=== PATIENT | female | born 1930 | race Caucasian/White ===

== ENCOUNTER 2020-07-27 20:49 | Inpatient (IN) ==
--- OUTSIDE RECORDS SUMMARY | 2020-07-27 20:52 | External Medical Summary | Continuity of Care Document ---
:1930 Author Name Silvia Wu Address Unavailable Unavailable , Care Team Providers Name Role Phone Jax Wu Unavailable [email or web address] Unavailable Unavailable Unavailable Unavailable Unavailable Problems Hearing loss (389.9) (H91.90) Impacted cerumen of both ears (380.4) (H61.23) Anorexia (783.0) (R63.0) Weight loss (783.21) (R63.4) History of malignant neoplasm of colon (V10.05) (Z85.038) Status: Resolved Spinal stenosis (724.00) (M48.00) Osteoarthritis (715.90) (M19.90) Dyslipidemia (272.4) (E78.5) Vitamin D deficiency (268.9) (E55.9) Osteopenia (733.90) (M85.80) History of Breast Cancer (V10.3) Status: Resolved Left inguinal hernia (550.90) (K40.90) Lower back pain (724.2) (M54.5) Impacted cerumen (380.4) (H61.20) Functional Status Hearing loss Allergies and Adverse Reactions Aspirin TABS (Allergy) Lexapro TABS (Allergy) Reaction: Constip ation Shellfish (Allergy) Medications Vitamin D 1000 UNIT TABS; TAKE 3 TABLET Daily Start: 28-May-2012 Refills: 0 Metamucil CAPS; TAKE 1 CAPSULE TWICE DAILY. Refills: 0 Procedures History of Complete Colonoscopy Status: Completed Immunizations Pneumococcal polysaccharide vaccine, 23 valent On: 5 Td On: 18-Feb-2008 Influenza On: 05-Apr-2011 Influenza On: 19-Mar-2012 11:42 Lot #: [id number], [employer]OFI PA[employer]UR Influenza On: 26-Mar-2013 Lot #: [id number], SANOFI PA[employer]UR Influenza On: 04-Apr-2014 14:17 Lot #: [id number], SANOFI PASTEUR Influenza On: 05-May-2015 14:57 Lot #: [id number], SANOFI PASTEUR Family History Father Family history of Father At Age ___ Status: Active Mother Family history of Mother At Age ___ Status: Active Unknown Family Member Family history of Heart Disease (V17.49) Status: Active Comments: Family History Social History - Smoking Status Never smoked tobacco Plan of Treatment Planned Observations Planned Goals not documented Results No Known Results Results not documented
[2020-07-27] MEDS ORDERED: SODIUM CHLORIDE 0.9% 1000ML 1,000 ML IV SCH (21:15)
[2020-07-27] MEDS ORDERED: ONDANSETRON INJ 2 MG/ML 2 ML VIAL IV STA ×2 (21:16→22:13)
--- NOTE | 2020-07-27 21:16 | Emergency Department Note ---
History of Present Illness General Chief complaint: Fall Stated complaint: FALL, L HIP PAIN Time Seen by Provider: 07/27/20 20:51 Source: patient Mode of arrival: EMS Limitations: physical limitation History of Present Illness Provider complaint: Fall This is an 89-year-old female who presents to the ED with a chief complaint of a fall. The son reportedly contacted or attempted to contact the patient and was unable to do so. He called a neighbor who checked on the patient. The patient was found on the floor in her apartment. She is believed to be there since yesterday. She told EMS that she wanted to just stay there and . She lives alone. The patient reported to the nurse that she took a bunch of oxycodone. The patient provides additional complaints at this time. Home Medications Medication Instructions Recorded Confirmed Type CHOLECALCIFEROL (VITAMIN D 1000 3,000 inter.unit PO DAILY #0 cap 08/23/12 History UNIT) Psyllium (Metamucil Powder) 1 pack PO BID #0 pack 08/23/12 History Allergies Allergy/AdvReac Type Severity Reaction Status Date / Time shellfish derived Allergy Severe HIVES Verified 08/23/12 11:30 Past Med/Surg History Social History Smoking Status: Never smoker Feels Safe at Home: No Review of Systems A total of 10 systems reviewed and were otherwise negative Physical Exam Vital Signs Vital Signs - 24 hr 07/27/20 21:10 07/27/20 21:30 07/27/20 22:11 Temperature 36.7 C Temperature Source Oral Pulse Rate 84 78 Pulse Rate [Apical] 76 Pulse Rate from SpO2 Sensor 78 Respiratory Rate 12 14 13 Respiratory Effort / Characteristics Non-Labored Spontaneous Non-Labored Spontaneous Respiratory Depth Normal Normal Blood Pressure 160/83 H 146/69 H Blood Pressure [Right Arm] 153/61 H Blood Pressure Mean 108 96 Blood Pressure Mean [Right Arm] 91 Blood Pressure Position Lying Blood Pressure Position [Right Arm] Lying Pulse Oximetry 98 100 100 Oxygen Delivery Method Room Air Nasal Cannula Oxygen Flow Rate 2 Sepsis Recent Fever Within 48 Hours No Sepsis New/Unexplained Change in Mental Status No Sepsis Action Taken by Nursing No Action Required CONSTITUTIONAL/VITAL SIGNS: Reviewed / noted above. GENERAL: Moderately ill in appearance. Cachectic. INTEGUMENTARY: Warm, dry, and [place]. There are multiple areas of skin redness and irritation on the bony prominences from the patient laying on the floor. HEAD: Normocephalic. EYES: without scleral icterus or trauma. ENT/OROPHARYNX: clear and dry. LYMPHADENOPATHY/NECK: Is supple without lymphadenopathy or meningismus. RESPIRATORY: Lungs clear and equal. CARDIOVASCULAR: Tachycardic rate and regular rhythm. GI/ABDOMEN: Soft and nontender. No organomegaly or pulsatile mass. No rebound or guarding. Normal bowel sounds. EXTREMITIES: Warm and well perfused. There is shortening of the left leg with some discomfort in the left hip. NEUROLOGICAL: The patient is hard of hearing. She does answer questions adequately. PSYCHIATRIC: She told EMS that she wanted to stay there and . MUSCULOSKELETAL: Generally weak in appearance. TRIAGE NURSING DOCUMENTATION REVIEWED. Course Administered Medications Sodium Chloride (Nss 1000ml) 1,000 mls @ 125 mls/hr IV .Q8H [facility] Stop: 07/28/20 05:14 Last Infusion: 07/27/20 22:05 Dose: 250 mls/hr Documented by: [id number] Infusion: 07/27/20 22:05 Dose: 0 mls/hr Documented by: [id number] Admin: 07/27/20 21:20 Dose: 125 mls/hr Documented by: [id number] Sodium Chloride (Nss 1000ml) 1,000 mls @ 250 mls/hr IV .Q4H [facility] Stop: 07/28/20 01:44 Last Admin: 07/27/20 22:09 Dose: Not Given Documented by: [id number] Discontinued Medications Ondansetron HCl (Ondansetron Inj 2 Mg/Ml 2 Ml Vial) 4 mg IV NOW [facility] Stop: 07/27/20 21:17 Last Admin: 07/27/20 21:20 Dose: 4 mg Documented by: [id number] Medical Decision Making Differential Diagnosis Differential includes acute coronary syndrome, myocardial infarction, CVA, TIA, anemia, infection, pneumonia, UTI, pyelonephritis, poor nutrition, dehydration, electrolyte disturbance,hypoglycemia. Medical Records Attestation: I reviewed the patient's medical records. Home Medications Current Medication List: was personally reviewed by me Laboratory Data Attestation: I reviewed the patient's lab results. Result diagrams: 07/27/20 21:09 07/27/20 21:09 Lab Results 07/27/20 07/27/20 07/27/20 Range/Units 21:09 21:09 21:09 WBC 10.95 H (4.8-10.8) K/uL RBC 4.13 L (4.2-5.4) M/uL Hgb 12.7 (12.0-16.0) g/dL Hct 37.6 (37-47) % MCV 91.0 (80-100) fL MCH 30.8 (25-34) pg MCHC 33.8 (32-36) g/dL RDW Std Deviation 43.4 (36.4-46.3) fL RDW Coeff of Jordan 13.0 (11.5-14.5) % Plt Count 156 (130-400) K/uL MPV 10.3 (7.4-10.4) fL Immature Gran % (Auto) 0.2 % Neut % (Auto) 89.8 % Lymph % (Auto) 5.1 % Calloway % (Auto) 4.8 % Eos % (Auto) 0.0 % Baso % (Auto) 0.1 % Neut # (Auto) 9.83 H (1.4-6.5) K/uL Lymph # (Auto) 0.56 L (1.2-3.4) K/uL Calloway # (Auto) 0.53 (0.11-0.59) K/uL Eos # (Auto) 0.00 (0-0.5) K/uL Baso # (Auto) 0.01 (0-0.2) K/uL Immature Gran # (Auto) 0.02 (0.00-0.02) K/uL Sodium 142 (136-145) mmol/L Potassium 3.8 (3.5-5.1) mmol/L Chloride 105 (98-107) mmol/L Carbon Dioxide 28 (21-32) mmol/L Anion Gap 9.0 (3-11) BUN 27 H (7-18) mg/dl Creatinine 0.97 (0.6-1.2) mg/dl Est Cr Clr Drug Dosing Not Reportable Est GFR ( Amer) 60.0 Est GFR (Non-Af Amer) 51.8 BUN/Creatinine Ratio 28.1 H (10-20) Glucose 116 H (70-99) mg/dl Calcium 9.0 (8.5-10.1) mg/dl Magnesium 1.6 L (1.8-2.4) mg/dl Total Bilirubin 3.0 H (0.2-1) mg/dl AST 35 (15-37) U/L ALT 23 (12-78) U/L Alkaline Phosphatase 50 (45-117) U/L Total Creatine Kinase 557 H (26-192) U/L Total Protein 6.1 L (6.4-8.2) gm/dl Albumin 2.8 L (3.4-5.0) gm/dl Globulin 3.3 (2.5-4.0) gm/dl Albumin/Globulin Ratio 0.9 (0.9-2) Acetaminophen (10-30) ug/ml COVID-19 Eval Order 07/27/20 Range/Units 21:50 WBC (4.8-10.8) K/uL RBC (4.2-5.4) M/uL Hgb (12.0-16.0) g/dL Hct (37-47) % MCV (80-100) fL MCH (25-34) pg MCHC (32-36) g/dL RDW Std Deviation (36.4-46.3) fL RDW Coeff of Jordan (11.5-14.5) % Plt Count (130-400) K/uL MPV (7.4-10.4) fL Immature Gran % (Auto) % Neut % (Auto) % Lymph % (Auto) % Calloway % (Auto) % Eos % (Auto) % Baso % (Auto) % Neut # (Auto) (1.4-6.5) K/uL Lymph # (Auto) (1.2-3.4) K/uL Calloway # (Auto) (0.11-0.59) K/uL Eos # (Auto) (0-0.5) K/uL Baso # (Auto) (0-0.2) K/uL Immature Gran # (Auto) (0.00-0.02) K/uL Sodium (136-145) mmol/L Potassium (3.5-5.1) mmol/L Chloride (98-107) mmol/L Carbon Dioxide (21-32) mmol/L Anion Gap (3-11) BUN (7-18) mg/dl Creatinine (0.6-1.2) mg/dl Est Cr Clr Drug Dosing Est GFR ( Amer) Est GFR (Non-Af Amer) BUN/Creatinine Ratio (10-20) Glucose (70-99) mg/dl Calcium (8.5-10.1) mg/dl Magnesium (1.8-2.4) mg/dl Total Bilirubin (0.2-1) mg/dl AST (15-37) U/L ALT (12-78) U/L Alkaline Phosphatase (45-117) U/L Total Creatine Kinase (26-192) U/L Total Protein (6.4-8.2) gm/dl Albumin (3.4-5.0) gm/dl Globulin (2.5-4.0) gm/dl Albumin/Globulin Ratio (0.9-2) Acetaminophen (10-30) ug/ml COVID-19 Eval Order Covid19 [facility] Imaging Data Attestation: I personally reviewed and interpreted this imaging study as follows: My Impression: X-ray of the pelvis and left hip shows a left hip fracture. X-ray of the chest: Per my interpretation there is no acute disease. CT scan of the brain: No intracranial bleed. ECG Data Attestation: I personally reviewed and interpreted this ECG as follows: Indication: + weakness Rate (beats per minute): 111 Rhythm: + sinus tachycardia ECG ST segments: no ST elevation ECG Findings: no PVCs MDM Narrative The patient presents to the ED after she was on the floor for at least a day. She had fallen. Details listed above. The patient has a left hip fracture on exam and on x-ray. Her blood work looks relatively unremarkable. She has a mild CK elevation. Chest x-ray has some artifactual changes but I do not suspect pneumothorax or pneumonia. CT scan of the brain did not show acute intracranial bleed. The patient was hydrated with some IV fluids. She was given IV Zofran for some nausea and IV fentanyl for pain. She was seen by the hospitalist for further evaluation and care. Impression & Plan Closed fracture of left hip, Weakness, Fall Discharge Plan Visit Data Chief Complaint: Fall Stated Complaint: FALL, L HIP PAIN ED Provider: Alessandro Enriquez Discharge Problem: Closed fracture of left hip, Weakness, Fall Patient Disposition: Being Evaluated by Hospitalist Forms Stand Alone Forms: My [facility] Prescriptions Prescriptions: No Action CHOLECALCIFEROL (VITAMIN D 1000 UNIT) 1,000 UNIT capsule 3,000 inter.unit PO DAILY Qty: 0 RF: 0 Psyllium (Metamucil Powder) powder 1 pack PO BID Qty: 0 RF: 0 Referrals Referrals: Louis Camara MD [Primary Care Provider] -
[2020-07-27 21:23] LABS: Basophils # (auto) 0.01 K/uL (0-0.2); Basophils % (auto) 0.1 %; Hematocrit (blood only) 37.6 % (37-47); Hemoglobin 12.7 g/dL (12.0-16.0); Immature Granulocytes # (auto) 0.02 K/uL (0.00-0.02); Immature Granulocytes % (auto) 0.2 %; Lymphocytes # (auto) 0.56 K/uL (1.2-3.4); Lymphocytes % (auto) 5.1 %; Mean Corpuscular Hemoglobin 30.8 pg (25-34); Mean Corpuscular Hgb Conc 33.8 g/dL (32-36); Mean Platelet Volume 10.3 fL (7.4-10.4); Monocytes # (auto) 0.53 K/uL (0.11-0.59); Monocytes % (auto) 4.8 %; Neutrophils # (auto) 9.83 K/uL (1.4-6.5); Neutrophils % (auto) 89.8 %; Platelet Count 156 K/uL (130-400); RDW Standard Deviation 43.4 fL (36.4-46.3); Red Blood Count 4.13 M/uL (4.2-5.4); White Blood Count 10.95 K/uL (4.8-10.8)
[2020-07-27 21:40] LABS: Alanine Aminotransferase 23 U/L (12-78); Albumin Level 2.8 gm/dl (3.4-5.0); Aspartate Aminotransferase 35 U/L (15-37); BUN Creatinine Ratio 28.1 (10-20); Blood Urea Nitrogen 27 mg/dl (7-18); Carbon Dioxide 28 mmol/L (21-32); Chloride 105 mmol/L (98-107); Est GFR (Non-African American) 51.8; Glucose 116 mg/dl (70-99); Magnesium 1.6 mg/dl (1.8-2.4); Potassium 3.8 mmol/L (3.5-5.1); Sodium 142 mmol/L (136-145)
[2020-07-27 21:43] LABS: Albumin Globulin Ratio 0.9 (0.9-2); Alkaline Phosphatase 50 U/L (45-117); Creatine Kinase 557 U/L (26-192); Globulin 3.3 gm/dl (2.5-4.0); Total Protein 6.1 gm/dl (6.4-8.2)
[2020-07-27] MEDS: SODIUM CHLORIDE 0.9% 1000ML 1,000 ML IV SCH ×2 (22:06→22:09)
[2020-07-27] MEDS: fentaNYL citrate 100 MCG/2 ML VIAL IV PRN ×2 (22:18→23:28)
[2020-07-27 22:24] LABS: Appearance Urine Clear (Clear); Bacteria Urine Automated Negative (Negative); Bilirubin Urine Negative (Negative); Blood Urine Negative (Negative); Cast Urine Automated 0 /lpf (0-5); Color Urine Yellow; Epithelial Cell Urine Auto 0-5 /lpf (0-5); Glucose Urine UA Negative (Negative); Ketones Urine 1+ (Negative); Leukocyte Esterase Urine Negative (Negative); Nitrite Urine Negative (Negative); Protein Urine Trace (Negative); RBC Urine Automated 0-4 /hpf (0-4); Urobilinogen Urine Negative (Negative); WBC Urine Automated 0 /hpf (0-5)
[2020-07-27 22:28] LABS: INR 1.1 (0.9-1.1); Partial Thromboplastin Ratio 1.1; Partial Thromboplastin Time 29.6 Seconds (21.0-31.0); Prothrombin Time 11.1 Seconds (9.0-12.0)
--- NOTE | 2020-07-27 22:55 | History & Physical Report ---
Date of Service July 27, 2020 Assessment & Plan (1) Fall: 89-year-old female with PMH of colorectal cancer s/p resection in 2009, and breast cancer who presented to the ED due to a fall at home. Cause of the fall is unclear but likely mechanical. Has remained hemodynamically stable and head imaging negative. ECG pending. Requires admission due to left hip fracture, evaluation and possible surgical intervention. Fall - Admit to medical floor - Head CT negative for acute process--official read pending - Left hip fracture on XR - Consult orthopedics - ECG pending Rhabdomyolysis - Elevated CK liekly 2/ being immobile on floor for many hours - IVF w/ NSS @ 80cc/hr - Trend CK level - AM BMP Hypomagnesemia - Low magnesium 1.6 - 2g Mag Sulfate given - Check Mag level in AM Abnormal CXR - Unclear abnormal findings on CXR--official read pending - Patient desatting on room air to 88% requiring 2L NC - Ordered CTA chest--follow results Passive SI - Patient expressed wanting to to EMS - Consult psych FENGI: NPO, NSS @80cc/hr DVT ppx: LOvenox 30mg SQ Dispo: Admit to medical floor Code Status: Full, per discussion with son (NORMA), he will bring in patient's advanced directive (2) Closed fracture of left hip: (3) Weakness: (4) Hypomagnesemia: (5) Rhabdomyolysis: (6) Passive suicidal ideations: (7) Abnormal chest x-ray: History of Present Illness Chief Complaint: Fall Primary Care Provider: Louis Camara MD Magalie Noel is an 89-year-old female with PMH of colorectal cancer s/p resection in 2009, and breast cancer who presented to the ED due to a fall at home. The patient lives alone and was not answering calls today from her son who lives in [place]. As such, he reached out to a neighbor of hers who went to her home and found her laying on the floor of her home. It is unclear how long the patient was on the floor but the son mentions that he talked to her yesterday (07/26) at 4:30PM and she was doing well at that time. The patient is an unreliable historian as she is very hard of hearing and is lethargic/confused. She does have hearing aids here with her but does not use them often and they are out of battery. However, she is able to hear and respond to some things. She mentions that she fell yesterday and hurt her hip, at which point she took an undetermined number of her 's oxycodone. She says that she took these because of pain related to her fall, not before falling. When EMS arrived at the home to assist, she reportedly mentioned that she just wanted to stay there and . Per phone discussion with patient's son, Mendez, he mentions that she has never expressed suicidal ideation and would be very opposed to suicide. Discussed patient's code status with son who is POA due to her current AMS. He mentions that she has advanced directive at home, which he or his brother will bring in when they travel to [place] tomorrow. Mentioned that she had mentioned not wanting "heroic measures" taken if her likelihood of survival/ improvement were low. Nonetheless he preferred to make her full code for now and will change according to her AD. Allergies Allergy/AdvReac Type Severity Reaction Status Date / Time shellfish derived Allergy Severe HIVES Verified 07/27/20 23:04 Home Medications Medication Instructions Recorded Confirmed Type cholecalciferol (vitamin D3) 25 mcg PO DAILY 07/27/20 07/27/20 History [Vitamin D3] Past Med/Surg History Social History Smoking Status: Never smoker Preferred Language: Somali Communication Ability: Effective Ben Day Artist Required: No Beliefs That Will Affect Care: None Current Living Situation: Alone Feels Safe at Home: No Assistive Devices: Walker Assistive Devices Comment: unsure of ambulatory devices at home Review of Systems Review of Systems: Unobtainable due to difficulty communicating but denies symptoms in general apart from pain. Physical Exam Constitutional: + thin, + frail appearing, + lethargic and + underweight; no acute distress Eyes: PERRL, conjunctivae normal, anicteric sclerae ENMT: external ear and nose normal, oropharynx normal Neck: trachea midline, no thyromegaly Respiratory: normal respiratory effort, lungs clear to auscultation no labored breathing Auscultation: no crackles, no rales, no rhonchi and no wheezes Cardiovascular: RRR, no murmur, no edema Heart Sounds: normal S1 and normal S2 Gastrointestinal (Abdomen): normal bowel sounds, soft, nontender, no hepatosplenomegaly Musculoskeletal: Contored in bed, refusing to move extremities Skin: no rashes, warm and dry Psychiatric: Expressed wanting to to EMS Results & Data Results & Data ([facility]) Vital Signs (Past 12 Hours) Vital Signs Temp Pulse Pulse Resp BP BP Pulse Ox 07/27/20 22:20 88 L 07/27/20 22:11 78 13 146/69 H 100 07/27/20 21:30 76 14 153/61 H 100 07/27/20 21:10 36.7 C 84 12 160/83 H 98 Supervising Physician Co-Signing Physician Notes Attending addendum: I have physically seen this patient, have supervised the medical residents activities, and agree with the H&P unless as otherwise noted. Assessment and Plan: Closed left hip fracture status post fall- N.p.o. after midnight Pain control Consult orthopedic surgery Rhabdomyolysis- CK 557 on admission Follow CK serially. Rehydration with IV fluids, NSS at 80 mils per hour Abnormal chest x-ray- Suggestion of left upper lobe mass Order CTA of chest to further assess Remaining orders and notations as noted Resident Activity Tracking Resident Involvement: Resident Care Provided Care Provided: Adult Hospital Medicine (1) Closed fracture of left hip Encounter type: initial encounter Qualified Code(s): S72.002A - Fracture of unspecified part of neck of left femur, initial encounter for closed fracture
[2020-07-28] MEDS: fentaNYL citrate 100 MCG/2 ML VIAL IV PRN (01:09)
[2020-07-28] MEDS ORDERED: OPTIRAY 320 125ml IV ONE (01:40)
[2020-07-28] MEDS: SODIUM CHLORIDE 0.9% 1000ML 1,000 ML IV SCH ×2 (01:44→15:07)
[2020-07-28] MEDS: MAGNESIUM SULFATE / D5W 1 GM/100 ML BAG IV SCH ×2 (01:44→03:45)
[2020-07-28] MEDS ORDERED: ALUMINUM/MAGNESIUM SUSP 30 ML UDC PO PRN (01:44)
[2020-07-28] MEDS ORDERED: PNEUMOCOCCAL ADMINISTRATION CHARGE ONE (02:06)
[2020-07-28] MEDS ORDERED: INFLUENZA ADMINISTRATION CHARGE ONE (02:06)
[2020-07-28] MEDS ORDERED: INFLUENZA VACCINE HIGH DOSE 65+ 0.7 ML SYR IM ONE (02:06)
[2020-07-28] MEDS ORDERED: PNEUMOCOCCAL POLYSACCHARIDES 25 MCG/0.5 ML VIAL/SYR IM ONE (02:06)
--- NOTE | 2020-07-28 06:33 | CT Scan Report ---
CT head/brain wo con CLINICAL HISTORY: 89 years-old Female with fall. Acute head injury status post fall TECHNIQUE: Multiple axial CT images of the head were obtained without contrast. A dose lowering tech nique was utilized adhering to the principles of ALARA. CT DOSE: 614.27 mGy.cm COMPARISON: None. FINDINGS: No acute intracranial hemorrhage, midline shift, intracranial mass, hydrocephalus, territorial ischem ia or abnormal extra-axial collection. Age-related involutional changes. White matter hypodensities s uggestive of chronic microvascular ischemic disease. The calvarium is intact. The paranasal sinuses, mastoid air cells, and middle ear cavities are clear . IMPRESSION: No acute intracranial abnormality or calvarial fracture. ACT 112: Negative or not required by law. The above report was generated using voice recognition software. It may contain grammatical, syntax o r spelling errors. Electronically signed by: Keith Milan M.D. 07/28/2020 6:32 AM
[2020-07-28 07:22] LABS: BUN Creatinine Ratio 32.7 (10-20); Calcium 8.5 mg/dl (8.5-10.1); Creatinine Clr Calc Pharmacy 35.7 ml/min; Est GFR (African American) 74.6; Est GFR (Non-African American) 64.4; Magnesium 2.3 mg/dl (1.8-2.4); Potassium 3.9 mmol/L (3.5-5.1)
[2020-07-28] MEDS ORDERED: MoRPHine SULFATE 4 MG/ML 1 ML CARP\\VIAL IV PRN (07:29)
[2020-07-28] MEDS: ONDANSETRON INJ 2 MG/ML 2 ML VIAL IV PRN ×2 (07:40→15:33)
--- NOTE | 2020-07-28 07:42 | XRay Report ---
XR hip LT 2V w pelvis CLINICAL HISTORY: fall. Left hip pain. COMPARISON STUDY: None. FINDINGS: There is a displaced left femoral neck fracture. This demonstrates up to 1.5 cm of superior displacement. No dislocation. The bones are osteopenic. The visualized pelvic bones and right hip ap pear intact. IMPRESSION: Displaced left femoral neck fracture. ACT 112: Negative or not required by law. Electronically signed by: Rufino Barron M.D. 07/28/2020 7:41 AM
--- NOTE | 2020-07-28 07:49 | XRay Report ---
XR chest 1V portable HISTORY: Fall. Left hip pain. weakness COMPARISON: Chest 05/08/2006. FINDINGS: There is a 5.5 x 3.2 cm left perihilar lobular mass. Patchy airspace opacity within the rig ht lower lung zone. The heart is normal in size. No pleural effusions. No pneumothorax. The bones are osteopenic. IMPRESSION: 1. A 5.5 x 3.2 cm left perihilar lobular mass. This is concerning for a primary bronchogenic malignan cy. Follow-up chest CT is recommended. 2. Patchy airspace opacities within the right lower lung zone. This may represent a pneumonia. ACT 112: Negative or not required by law. Electronically signed by: Rufino Barron M.D. 07/28/2020 7:47 AM
--- NOTE | 2020-07-28 08:26 | CT Scan Report ---
CHEST CTA for PULMONARY ARTERIES CT DOSE: 261.20 mGy.cm HISTORY: Abnormal chest x-ray. Nonspecific findings in lungs on CXR TECHNIQUE: Multiaxial CT images of the chest were performed following the intravenous administration of contrast to evaluate the pulmonary arteries. Maximal intensity projection images were also obtaine d. A dose lowering technique was utilized adhering to the principles of ALARA. COMPARISON STUDY: Chest 07/27/2020. FINDINGS: There is a 1.7 cm saccular aneurysm within the infrarenal abdominal aorta. The visualized l iver and spleen are unremarkable. Thickening of the adrenal glands is likely age-related. No evidence for an aortic dissection. The heart is normal in size. No pleural or pericardial effusions. Borderli ne aneurysmal dilatation of the ascending thoracic aorta measuring up to 3.9 cm in diameter. Tiny josh ear filling defect seen within a single left upper lobe segmental pulmonary artery best seen on image 213. Just beyond this filling defect there is severe narrowing of the left upper lobe segmental/subs egmental pulmonary arteries at this location secondary to the lobular mass at this location. No addit ional filling defects within the remaining pulmonary arteries. Therefore, this small filling defect f avors chronic thrombus versus scarring or tumor invasion. There is a 4.1 x 3.7 cm lobular left perihi lar low density lesion. This concerning for a pulmonary mass. There is an enlarged and partially calc ified left hilar lymph node measuring 1.7 cm. A 7 mm left thyroid nodule. No additional enlarged medi astinal or right hilar lymph nodes. This partially calcified left hilar lymph node appears to demonst rate a small endobronchial component. Multiple small patchy airspace opacities within the right mid t o lower lung zone most pronounced within the right lower lobe. This is consistent with a pneumonia an d could be due to viral process or aspiration. No pneumothorax. No suspicious lytic or blastic osseou s lesions. IMPRESSION: 1. Tiny linear filling defect seen within a single left upper lobe segmental pulmonary artery. Just b eyond this filling defect there is severe narrowing of the left upper lobe segmental/subsegmental pul monary arteries at this location secondary to the lobular masslike density at this location. No addit ional filling defects within the remaining pulmonary arteries. Therefore, this small filling defect f avors chronic thrombus versus scarring or tumor invasion. 2. There is a 4.1 x 3.7 cm lobular left perihilar low density lesion. This concerning for a pulmonary mass. An obstructed and fluid-filled bronchus could also have a similar appearance. There is an enla rged and partially calcified left hilar lymph node measuring 1.7 cm which appears to demonstrate a sm all endobronchial component. Bronchoscopy recommended for further evaluation and to exclude a pulmona ry mass. 3. A 1.7 cm saccular aneurysm within the infrarenal abdominal aorta. 4. Multiple small patchy airspace opacities within the right mid to lower lung zone. This is consiste nt with a pneumonia could be due to a viral process or aspiration. ACT 112: Positive. There are findings on this exam that require communication between the performing entity and the patient following Patient Test Result Information Act ([place] Act 112) guidelines. Electronically signed by: Rufino Barron M.D. 07/28/2020 8:25 AM
[2020-07-28] MEDS ORDERED: ENOXAPARIN INJ 30 MG/0.3 ML SYR SQ SCH (09:00)
--- NOTE | 2020-07-28 09:32 | Surgery Consultation ---
Date of Consultation July 28, 2020 Assessment & Plan (1) Closed fracture of left hip: I discussed treatment options with the patient. I also discussed this with her son in [place] by the name of our knee. Certainly this is simply typically fixed surgically with a hemiarthroplasty. The risks and benefit of this procedure explained to the patient as well as her son and informed consent was obtained. The risks and benefits include but not limited to DVT, PE, , infection, fracture, dislocation, need for blood transfusion, need for further surgery. Patient understands and desires to proceed. Informed consent was obtained. The patient's been admitted by the hospitalist service. She is being medically optimized. We will likely proceed with surgery later on the this morning or early afternoon. Present on Admission?: Yes History of Present Illness Reason for Consultation: Left hip fracture Attending Physician: Dereje Diop History of Present Illness Patient is an 89-year-old female who lives by herself in a two-story building who reports a fall yesterday. Patient is a very poor historian with very hard of hearing with a nonfunctioning hearing aids. She apparently sustained a fall. She had acute onset of pain and could not walk afterwards. She denies any pre-existing hip pain. Denies any other significant injuries. She was a previous ambulator. She states she ambulates without a walker normally. Allergies Allergy/AdvReac Type Severity Reaction Status Date / Time shellfish derived Allergy Severe HIVES Verified 07/27/20 23:04 Home Medications Medication Instructions Recorded Confirmed Type cholecalciferol (vitamin D3) 25 mcg PO DAILY 07/27/20 07/27/20 History [Vitamin D3] Patient History Social History Smoking Status: Never smoker Preferred Language: Uzbek Communication Ability: Effective Special Events Fundraiser Required: No Beliefs That Will Affect Care: None Current Living Situation: Alone Feels Safe at Home: No Assistive Devices: Glasses and Hearing Aid - Right Assistive Devices Comment: unsure of ambulatory devices at home Review of Systems Review of Systems: All systems reviewed & are unremarkable except as noted in HPI & below Physical Exam Physical Exam: Musculoskeletal exam reveals an elderly cachectic female who is lying in bed. She looks in no acute distress. General musculoskeletal exam reveals painless range of motion of her cervical thoracic and lumbar spine to palpation. She has had painless range of motion of both upper extremities. She does have some scattered bruising. And diffuse atrophy she is quite cachectic. Examination of her lower extremities reveals her left leg to be shortened and slightly externally rotated. No pain with palpation. No knee effusion. She has marked pain with any attempted hip range of motion. She can dorsiflex and plantarflex her foot appropriately. She is neurologically intact. Examination of the right lower extremity reveals no obvious deformity. She does have some bruising over the anterior aspect of her knee around her kneecap. No knee effusion. No particular pain with hip or knee motion. Results & Data ([facility]) Vital Signs (Past 12 Hours) Vital Signs Temp Pulse Pulse Resp BP BP Pulse Ox 07/28/20 07:20 36.8 C 85 16 108/57 L 97 07/28/20 01:52 36.4 C L 87 18 151/77 H 94 07/28/20 01:30 07/28/20 01:00 76 22 144/73 H 97 07/28/20 00:30 69 16 150/67 H 100 07/28/20 00:00 64 17 128/64 100 07/27/20 23:30 69 18 141/56 H 100 07/27/20 23:01 73 13 99 07/27/20 23:00 76 20 144/77 H 100 07/27/20 22:30 81 16 127/56 L 99 07/27/20 22:20 88 L 07/27/20 22:11 78 13 146/69 H 100 07/27/20 21:30 76 14 153/61 H 100 Pulse Ox 07/28/20 07:20 07/28/20 01:52 07/28/20 01:30 94 07/28/20 01:00 07/28/20 00:30 07/28/20 00:00 07/27/20 23:30 07/27/20 23:01 07/27/20 23:00 07/27/20 22:30 07/27/20 22:20 07/27/20 22:11 07/27/20 21:30 PG Care Time/CCT Total # of Minutes Spent Total Time Spent with Patient: Total time spent is greater than 50% in coor dination of care (as documented) at patient's floor/unit and/or counseling patient: Coding Level of Care Code 53950 Office/OBS Consult Lvl 5 Diagnoses Closed fracture of left hip S72.002A Encounter type: initial encounter (1) Closed fracture of left hip Encounter type: initial encounter Qualified Code(s): S72.002A - Fracture of unspecified part of neck of left femur, initial encounter for closed fracture
[2020-07-28] MEDS ORDERED: BUPIVACAINE/EPINEPHRINE 0.5% MPF 1:200,000 30 ML VIAL ONE (09:47)
[2020-07-28] MEDS ORDERED: BACITRACIN INJ 50,000 UNIT VIAL ONE (09:48)
--- NOTE | 2020-07-28 09:54 | History & Physical Bridge Note ---
Date of Service July 28, 2020 History & Physical Bridge Note I have examined the patient, reviewed the History & Physical and in the interval since the performance of the History & Physical I have noted the following changes of clinical significance: no changes noted
[2020-07-28] MEDS ORDERED: BUPIVACAINE 0.5 % 5 MG/1 ML PF 10ML VIAL ONE (10:35)
[2020-07-28] MEDS ORDERED: fentaNYL citrate 100 MCG/2 ML VIAL ONE (10:45)
[2020-07-28] MEDS ORDERED: LIDOCAINE HCL 2% 2 ML VIAL/AMP(20MG/ML) INFIL ONE (10:45)
[2020-07-28] MEDS ORDERED: PROPOFOL IV EMULSION 10 MG/ML 20 ML VIAL IV ONE (10:45)
--- NOTE | 2020-07-28 11:09 | Anesthesiology Consultation ---
Date of Service July 28, 2020 Assessment & Plan Chart Review Chart Review: Acceptable Risk for Surgery Consults Requested none History Surgery Operation Date: 07/28/20 10:50 Proposed Procedures p Left Bipolar Hemiarthroplasty - Srinath Starks MD Height/Weight Height: 5 ft 7 in Weight: 48 kg Allergies Allergy/AdvReac Type Severity Reaction Status Date / Time shellfish derived Allergy Severe HIVES Verified 07/27/20 23:04 Medications Home Medications Medication Instructions Recorded Confirmed Last Taken cholecalciferol (vitamin D3) 25 mcg PO DAILY 07/27/20 07/27/20 Unknown [Vitamin D3] Active Medications Generic Name Dose Route Start Last Admin Trade Name Freq PRN Reason Stop Dose Admin Sodium Chloride 1,000 mls @ 80 mls/hr 07/28/20 01:44 07/28/20 06:02 Nss 1000ml IV 08/27/20 01:43 80 mls/hr .[id number] KUSHAL Infusion Morphine Sulfate 4 mg 07/28/20 07:29 07/28/20 07:40 Morphine Sulfate 4 Mg/Ml 1 Ml Carp\Vial IV 08/11/20 07:28 4 mg Q4H PRN Administration Severe Pain (rating 7-10) Ondansetron HCl 4 mg 07/28/20 01:44 07/28/20 07:40 Ondansetron Inj 2 Mg/Ml 2 Ml Vial IV 08/27/20 01:43 4 mg Q6H PRN Administration Nausea NPO Date Last Intake of Fluids: 07/28/20 Time Last Intake of Fluids: 01:30 Date Last Intake of Solids: 07/28/20 Time Last Intake of Solids: 01:30 Social History Smoking Status: Never smoker Physical Exam Vital Signs Last Vital Signs Temp 36.9 C 07/28/20 10:53 Pulse 87 07/28/20 10:53 Resp 18 07/28/20 10:53 BP 108/63 07/28/20 10:53 Pulse Ox 95 07/28/20 10:53 Testing Laboratory Results 07/27/20 21:09 07/28/20 06:19 PT 11.1 Seconds (9.0-12.0) 07/27/20 21:09 INR 1.1 (0.9-1.1) 07/27/20 21:09 APTT 29.6 Seconds (21.0-31.0) 07/27/20 21:09 Urine Color Yellow 07/27/20 22:11 Urine Appearance Clear (Clear) 07/27/20 22:11 Urine pH 5.0 (4.5-7.5) 07/27/20 22:11 Ur Specific [place] 1.020 (1.000-1.030) 07/27/20 22:11 Urine Protein Trace (Negative) H 07/27/20 22:11 Urine Glucose (UA) Negative (Negative) 07/27/20 22:11 Urine Ketones 1+ (Negative) H 07/27/20 22:11 Urine Nitrite Negative (Negative) 07/27/20 22:11 Ur Leukocyte Esterase Negative (Negative) 07/27/20 22:11 Urine WBC (Auto) 0 /hpf (0-5) 07/27/20 22:11 Urine RBC (Auto) 0-4 /hpf (0-4) 07/27/20 22:11 U Hyaline Cast (Auto) 0 /lpf (0-5) 07/27/20 22:11 U Epithel Cells (Auto) 0-5 /lpf (0-5) 07/27/20 22:11 Urine Bacteria (Auto) Negative (Negative) 07/27/20 22:11 Blood Type A Positive 07/27/20 22:41 Antibody Screen NEGATIVE 07/27/20 22:41
[2020-07-28] MEDS ORDERED: HYDROmorphone INJ 1 MG/ML SYRINGE IV PRN (11:10)
[2020-07-28] MEDS ORDERED: ePHEDrine sulfate 50 MG/ML AMP IV PRN (11:10)
[2020-07-28] MEDS ORDERED: fentaNYL citrate 100 MCG/2 ML VIAL IV PRN (11:10)
[2020-07-28] MEDS ORDERED: ATROPINE SULFATE 0.1 MG/ML 10ML SYR IV PRN (11:10)
[2020-07-28] MEDS ORDERED: KETAMINE 50 MG/5 ML SYRINGE ONE (11:13)
--- NOTE | 2020-07-28 12:39 | Communication Note ---
Date of Service: July 28, 2020 Psychiatric consultation requested by our hospitalist team to evaluate patient after she had reportedly made statements to EMS suggestive of passive wishes. Pt was admitted medically on 07/27/2020 due to a fall she sustained at home - findings suggest closed fracture of the patient's left hip. H&P suggests the patient took an unknown number of her 's oxycodone for the pain related to her fall. Pt does have a PMH of colorectal cancer and breast cancer. Surgical consultation was placed. Attempt was made today by our psychiatric nurse liaison to complete initial evaluation of the patient. Unfortunately, the patient is reported to be very hard of hearing and productivity of interview was limited. Liaison did reach out to [employer] for assistance with obtaining hearing aid batteries, but likely not able to complete request today. Pt is also noted to be headed to the OR today due to left hip fracture, and likely will not be in a state to complete a psychiatric consultation later today. We will plan to follow-up with patient tomorrow. In the interim, our liaison has been able to discuss our role with the patient's son. Son denies known history of mental health treatment for the patient. He feels the statements were likely in the context of patient dealing with several significant cancer diagnoses and the fear of another prolonged medical stay. He also believes some of the patient's statements may have been related to her use of oxycodone contributing to AMS, as he stated these comments are out of character. Son believes patient to be strongly opposed to suicide given her yazidism background. See psychiatric nurse liaison note for additional collateral information. We will continue to follow, and are happy to follow-up with the patient directly when she is better able to participate with interview. In the interim, would suggested continued monitoring of mood and any continued statements suggestive of self-harm thoughts or suicidality.
[2020-07-28] MEDS ORDERED: ePHEDrine sulfate 50 MG/ML SYR ONE (12:40)
[2020-07-28] MEDS ORDERED: PHENYLEPHRINE 100MCG/ML 5ML SYR ONE (12:40)
--- NOTE | 2020-07-28 12:54 | Operative Report ---
Post Operative Report Pre & Post Diagnosis Operation Date: 07/28/20 10:50 Pre-Op Diagnosis: Left displaced femoral neck/hip fracture Post-Op Diagnosis: Left displaced femoral neck/hip fracture I identified the patient and participated in the time-out.: Yes Procedure Operation Date: 07/28/20 10:50 Actual Procedures p Left cemented hip Bipolar Hemiarthroplasty(Left) - Srinath Starks MD Surgeon Srinath Starks MD Sourcing Specialist PO [place] Estimated Blood Loss 100 Findings Consistent with Post-Op Diagnosis Fluids 500 cc Specimens Left femoral head sent for pathology. Drains None. Anesthesia Type Spinal MAC Complications none Disposition Accompanied Patient To Recovery: Yes Disposition: Recovery Room Indications Patient is an 89-year-old female and self ambulator who sustained a fall at home. She was found and brought to the emergency room where x-rays revealed a left displaced femoral neck fracture. Patient was admitted by the medicine service, medically optimized, and indicated for surgical treatment. Description of Procedure Operative implants consisted of: 1. She size 12 LD fracture femoral stem. 2. 28 mm / +3.5 mm femoral head. 3. 46 mm bipolar shell and liner. 4. 11 mm distal centralizer. 5. Small cement restrictor. The patient was taken to the operating identified and placed on the operating table supine position but all contact areas were properly padded. IV antibiotics were tried by anesthesia team. A spinal anesthetic was implemented by the anesthesia team. The patient was then placed in the right lateral decubitus position. An axillary roll was placed. A Stulberg hip positioner was used for positioning. The left hip and the lower extremity were then scrubbed with Hibiclens, prepped with ChloraPrep and then draped in usual sterile fashion. A posterior lateral approach to the left hip was then performed to a curvilinear incision centered over the greater trochanter. Sharp dissection was got through subcutaneous tissue down to level the IT band and gluteal fascia but the IT band gluteal fascia were then incised longitudinally in line with skin incision. The underlying greater bursa was excised. The piriformis and external rotators were then released from the posterior aspect of hip joint. The hip joint capsule was then teed and tagged for later repair. Hip was internally rotated. Femoral neck osteotomy cut was made just below the fracture site. Femoral neck was removed. The femoral head was removed. The femoral head was sized and the acetabulum was trialed and a 46 mm bipolar shell was selected. Attention drawn the femur. The proximal femur was entered with a cookie-cutter followed by canal finder. I then used a lateralizing reamer and then broached begin the was sized 9 broach. We progressed up to a size 12. I then did broach with a size 13. We then trialed the hip and the +3.5 articular ball provided optimal soft tissue tension, maximum stability, and appropriate leg lengths. I elect to place these implants. All trial implants were removed. A small cement restrictor was placed. A double batch Palacos G cement was mixed. I then injected the canal with the cement in the Biomet LD/fracture size 12 femoral stem was placed in maximum anteversion. Once the cement hardened, a 28/+3.5 articular ball was placed followed by a 46 mm bipolar shell and liner. The hip was once again located and found to be stable. Attention drawn to closing. The wound was irrigated with copious amounts of pulsatile lavage solution. The posterior capsule was then repaired with #2 Tycron suture in a [id number] fashion. The IT band and gluteal fascia then closed with #1 PDS suture in running fashion the subcutaneous tissue was then closed with 2 layers with a deep layer #1 Vicryl suture and subcutaneous tissues with 2 Dexon suture in a buried interrupted fashion. Skin was closed skin delores. Leg was then cleaned dried a sterile dressing composed Xeroform, 4 x 4's, ABD pad, foam tape was applied. The patient then transferred to the recovery room in stable condition. The patient tolerated procedure well and there were no complications. Narendra Cortez, my physician educational/development assistant, was present for the entire procedure. His assistance was required for proper patient positioning, prepping and draping, surgical exposure, retraction, performing the technical details the operation, placing the implants, and closure of the wound and placement of the sterile bandage. I attest to the content of the Intraoperative Record and any orders documented therein. Any exceptions are noted below.
--- NOTE | 2020-07-28 13:11 | XRay Report ---
XR hip LT min 2V CLINICAL HISTORY: Postoperative examination COMPARISON: 07/27/2020 DISCUSSION: There is a bipolar left hip arthroplasty. There is no dislocation. The hardware appears i ntact. There are overlying skin delores. There is gas within the soft tissues consistent with recent surgery IMPRESSION: Bipolar left hip prosthesis. No evidence of dislocation ACT 112: Negative or not required by law. Electronically signed by: Mauricio Luu M.D. 07/28/2020 1:09 PM
--- NOTE | 2020-07-28 13:38 | Anesthesiology Progress Note ---
Date of Service July 28, 2020 Anesthesia Post Procedure Vital Signs Vital Signs: Temp Pulse Pulse Pulse Resp BP BP 07/28/20 13:35 37.1 C 97 H 20 106/58 L 07/28/20 13:25 86 19 118/59 L 07/28/20 13:15 100 H 15 114/81 07/28/20 13:05 88 14 108/54 L 07/28/20 12:55 89 14 108/54 L 07/28/20 12:49 36.9 C 94 H 13 85/47 L 07/28/20 10:53 36.9 C 87 18 108/63 07/28/20 07:20 36.8 C 85 16 108/57 L 07/28/20 01:52 36.4 C L 87 18 151/77 H 07/28/20 01:30 07/28/20 01:00 76 22 144/73 H 07/28/20 00:30 69 16 150/67 H 07/28/20 00:00 64 17 128/64 07/27/20 23:30 69 18 141/56 H 07/27/20 23:01 73 13 07/27/20 23:00 76 20 144/77 H 07/27/20 22:30 81 16 127/56 L 07/27/20 22:20 07/27/20 22:11 78 13 146/69 H 07/27/20 21:30 76 14 153/61 H 07/27/20 21:10 36.7 C 84 12 160/83 H Pulse Ox Pulse Ox 07/28/20 13:35 98 07/28/20 13:25 98 07/28/20 13:15 93 07/28/20 13:05 100 07/28/20 12:55 97 07/28/20 12:49 96 07/28/20 10:53 95 07/28/20 07:20 97 07/28/20 01:52 94 07/28/20 01:30 94 07/28/20 01:00 97 07/28/20 00:30 100 07/28/20 00:00 100 07/27/20 23:30 100 07/27/20 23:01 99 07/27/20 23:00 100 07/27/20 22:30 99 07/27/20 22:20 88 L 07/27/20 22:11 100 07/27/20 21:30 100 07/27/20 21:10 98 Pain Intensity Left Hip: Pain Intensity: 0 Transfer of Care Handoff Completed per policy Notes Mental Status: alert / awake / arousable and participated in evaluation Patient Amnestic to Procedure: Yes Nausea / Vomiting: adequately controlled Pain: adequately controlled Airway Patency, RR, SpO2: stable & adequate BP & HR: stable & adequate Hydration State: stable & adequate Anesthetic Complications: no major complications apparent
[2020-07-28] MEDS ORDERED: NALOXONE HCL 0.4 MG/1 ML VIAL/CARP IV PRN (14:00)
[2020-07-28] MEDS: ceFAZolin 1000MG 1,000 MG/7.5 ML SYR IV SCH (19:46)
--- NOTE | 2020-07-28 20:30 | Billing Data ---
Date of Service July 28, 2020 Coding Level of Care Code 15529 Initial Inpt Care Lvl 2
[2020-07-28] MEDS: MoRPHine SULFATE 2 MG/ML CARP IV PRN (21:20)
--- NOTE | 2020-07-28 22:20 | Hospitalist Progress Note ---
Date of Service July 28, 2020 Assessment & Plan (1) Fall: 89-year-old female with PMH of colorectal cancer s/p resection in 2009, and breast cancer who presented to the ED due to a fall at home. Cause of the fall is unclear but likely mechanical. Has remained hemodynamically stable and head imaging negative. ECG pending. Requires admission due to left hip fracture, evaluation and possible surgical intervention. Fall Left hip fracture - Admit to medical floor - Left cemented hip Bipolar Hemiarthroplasty(Left - Left hip fracture on XR Rhabdomyolysis - resolved. Hypomagnesemia - replenished Abnormal CXR - Unclear abnormal findings on CXR--official read pending - Patient desatting on room air to 88% requiring 2L NC - Ordered CTA chest--follow results Passive SI - appreciate input from psych. LORA: NPO, NSS @80cc/hr DVT ppx: LOvenox 30mg SQ Dispo: Admit to medical floor Code Status: Full, per discussion with son (POChristina), he will bring in patient's a dvanced directive (2) Closed fracture of left hip: as above. (3) Weakness: (4) Hypomagnesemia: (5) Rhabdomyolysis: (6) Passive suicidal ideations: (7) Abnormal chest x-ray: Admission and Anticipated Discharge Date Admission Date: July 27, 2020 Subjective Patient reports having some pain in her left heel and left hip. Patient denies any new symptoms. No suicidal ideation today. Review of Systems Review of Systems: All systems reviewed & are unremarkable except as noted in HPI & below Physical Exam Physical Exam: Constitutional: + thin, + frail appearing, + lethargic and + underweight; no acute distress Eyes: PERRL, conjunctivae normal, anicteric sclerae ENMT: external ear and nose normal, oropharynx normal Neck: trachea midline, no thyromegaly Respiratory: normal respiratory effort, lungs clear to auscultation no labored breathing Auscultation: no crackles, no rales, no rhonchi and no wheezes Cardiovascular: RRR, no murmur, no edema Heart Sounds: normal S1 and normal S2 Gastrointestinal (Abdomen): normal bowel sounds, soft, nontender, no hepatosplenomegaly Skin: no rashes, warm and dry Results & Data Results & Data ([facility]) Vital Signs (Past 12 Hours) Vital Signs Temp Pulse Pulse Resp BP Pulse Ox 07/28/20 19:05 36.9 C 77 17 111/62 95 07/28/20 17:23 36.5 C 95 H 16 110/62 97 07/28/20 16:08 36.6 C 86 16 112/67 94 07/28/20 15:08 36.6 C 96 H 17 107/68 100 07/28/20 14:25 84 16 107/64 98 07/28/20 14:02 36.3 C L 89 16 110/66 96 07/28/20 13:45 85 18 114/55 L 98 07/28/20 13:35 37.1 C 97 H 20 106/58 L 98 07/28/20 13:25 86 19 118/59 L 98 07/28/20 13:15 100 H 15 114/81 93 07/28/20 13:05 88 14 108/54 L 100 07/28/20 12:55 89 14 108/54 L 97 07/28/20 12:49 36.9 C 94 H 13 85/47 L 96 07/28/20 10:53 36.9 C 87 18 108/63 95 PG Care Time/CCT Total # of Minutes Spent Total Time Spent with Patient: Total time spent is greater than 50% in coordination of care (as documented) at patient's floor/unit and/or counseling patient: Coding Level of Care Code 40953 Subseq Hosp Care Lvl 3 Diagnoses Fall W19.XXXA Closed fracture of left hip S72.002A Encounter type: initial encounter Weakness R53.1 Hypomagnesemia E83.42 Rhabdomyolysis M62.82 Passive suicidal ideations R45.851 Abnormal chest x-ray R93.89 Time Spent (min) 35 (1) Closed fracture of left hip Encounter type: initial encounter Qualified Code(s): S72.002A - Fracture of unspecified part of neck of left femur, initial encounter for closed fracture
[2020-07-29] MEDS: SODIUM CHLORIDE 0.9% 1000ML 1,000 ML IV SCH (04:37)
[2020-07-29] MEDS: ceFAZolin 1000MG 1,000 MG/7.5 ML SYR IV SCH (04:50)
--- NOTE | 2020-07-29 06:19 | Electrocardiogram Report ---
Test Reason : Blood Pressure : / mmHG Vent. Rate : 111 BPM Atrial Rate : 111 BPM P-R Int : 194 ms QRS Dur : 080 ms QT Int : 326 ms P-R-T Axes : 074 -62 078 degrees QTc Int : 443 ms Poor data quality, interpretation may be adversely affected Sinus tachycardia Left anterior fascicular block Nonspecific T wave abnormality Abnormal ECG When compared with ECG of 08-MAY-2006 19:45, T wave inversion no longer evident in Inferior leads Confirmed by Apolinar Hua ([id number]) on 07/29/2020 6:18:30 AM Referred By: REFERRED SELF Confirmed By:Apolinar Hua
[2020-07-29 06:32] LABS: Basophils # (auto) 0.01 K/uL (0-0.2); Basophils % (auto) 0.2 %; Eosinophils # (auto) 0.02 K/uL (0-0.5); Eosinophils % (auto) 0.4 %; Hematocrit (blood only) 28.9 % (37-47); Hemoglobin 9.7 g/dL (12.0-16.0); Immature Granulocytes # (auto) 0.04 K/uL (0.00-0.02); Immature Granulocytes % (auto) 0.8 %; Lymphocytes # (auto) 0.74 K/uL (1.2-3.4); Lymphocytes % (auto) 13.9 %; Mean Corpuscular Hemoglobin 30.9 pg (25-34); Mean Corpuscular Hgb Conc 33.6 g/dL (32-36); Mean Platelet Volume 10.6 fL (7.4-10.4); Monocytes # (auto) 0.39 K/uL (0.11-0.59); Monocytes % (auto) 7.3 %; Neutrophils # (auto) 4.12 K/uL (1.4-6.5); Neutrophils % (auto) 77.4 %; Platelet Count 127 K/uL (130-400); RDW Coefficient of Variation 13.4 % (11.5-14.5); Red Blood Count 3.14 M/uL (4.2-5.4); White Blood Count 5.32 K/uL (4.8-10.8)
[2020-07-29 06:52] LABS: BUN Creatinine Ratio 28.3 (10-20); Calcium 7.8 mg/dl (8.5-10.1); Creatinine Clr Calc Pharmacy 35.2 ml/min; Est GFR (African American) 73.5; Est GFR (Non-African American) 63.4; Potassium 3.6 mmol/L (3.5-5.1)
[2020-07-29] MEDS: CHOLECALCIFEROL 1,000 UNITS 25 MCG TAB PO SCH (08:39)
--- NOTE | 2020-07-29 12:58 | Progress Notes ---
DATE: 07/29/2020 SUBJECTIVE: An 89-year-old white female postop day 1 from a left cemented bipolar hip arthroplasty for fracture. She is doing well. Having some pain, but very manageable. No new complaints. No chest pain or shortness of breath. Not feeling dizzy or lightheaded. OBJECTIVE: VITAL SIGNS: Temperature is 37.0. Vital signs stable. GENERAL: Shows elderly, frail female. She is sitting up in bed and eating lunch and looks quite comfortable. EXTREMITIES: Examination of left hip reveals the leg to be well aligned. Dressing is clean, dry and intact. She can dorsiflex and plantarflex her foot appropriately. She is neurologically intact. LABORATORY DATA: Hemoglobin 9.7. Hematocrit 28.9. Electrolytes are stable. ASSESSMENT: An 89-year-old white female postop day 1 from a left cemented bipolar hip arthroplasty for fracture. She is doing reasonably well. Pain is controlled. Hip is located. She is neurologically intact. PLAN: 1. DVT prophylaxis including thigh-high TEDs, SCDs, and we would recommend a baby aspirin twice a day. I do not think she is a good Lovenox candidate and she is at a significant fall risk. 2. PT/OT. Weight bear as tolerated. Left total hip protocol. 3. Pain control, doing well with current pain regimen. 4. Medical management as per the medicine service. 5. Disposition: She is orthopedically okay for discharge any time medically stable. She will certainly need a rehab stay. Any orthopedic questions can be directed to me at [phone]. She can fully weightbear as tolerated. Needs to obey hip precautions. I will see her back 2-3 weeks out from surgery.
[2020-07-29] MEDS: ASPIRIN 81 MG ECTAB PO SCH ×2 (14:02→20:59)
--- NOTE | 2020-07-29 15:43 | Psychiatric Consultation ---
Date of Consultation July 29, 2020 Impression / Recommendations Impression Dr. Dixie Owen was directly involved in review and discussion of the patient's case and participated in medical decision making regarding treatment recommendations. RECOMMENDATIONS: 07/29 - Psychiatric consultation requested to evaluate patient after reported statements of passive wishes to EMS. Case reviewed yesterday, collateral obtained from patient's son who denies history of psychiatric diagnoses or previous statements of wishes. - Unfortunately patient is very hard of hearing, which makes in-depth communication difficult. We have requested that hearing aid batteries be provided to the patient to assist with clear communication. In the interim, the patient was able to engage in conversation through written notes. She reports her mood is "okay" and denies any thoughts of self-harm or suicide. Would encourage continued monitoring of mood as she recovers from her recent fall and subsequent surgery. - Outpatient services could be explored if patient does verbalize symptoms of depression, anxiety, or suicidality in the future. At this time, however, these do not seem to be primary concerns for the patient. We appreciate the opportunity to participate in the care of this patient. Please reach out to our service with any additional questions or updates. Psych History Identifying Data 89-year-old female admitted medically on 07/27/2020 after presenting to the ED status post fall. Pt was found to have a left displaced femoral neck/hip fracture which was treated surgically on 07/28/2020. Psychiatric consultation had been requested to evaluate patient due to reports that she had verbalized passive wishes to EMS. Chief Complaint "I'm ok." History of Present Illness Magalie Noel is an 89-year-old female admitted medically on 07/27/2020 after presenting to the ED s/p fall sustained at home. Pt had suffered a left displaced femoral neck/hip fracture which was corrected surgically on 07/28/2020. Psychiatric consultation had been requested at time of admission due to reports that the patient had verbalized passive wishes to EMS. Review of patient's chart was conducted and collateral was obtained from her son. Direct conversation with the patient was conducted after her surgical procedure. Conversation was admittedly brief due to significant hearing impairment. We have requested hearing aid batteries, which will hopefully aid in better communication. Pt was at least able to converse using written questions. Pt reported her mood is "ok". She denies thoughts to harm herself or others and denies thoughts to end her life. She does state that her strong restorationist beliefs would prevent her from taking action on such thoughts. Pt denied any acute concerns related to her mood or anxiety. She was informed of our desire to communicate with her better by obtaining hearing aid batteries, and was appreciative of this. She denied other questions or concerns at this time. Past Psychiatric History Current Psychiatric Diagnosis: No known history of psychiatric diagnoses Allergies Allergy/AdvReac Type Severity Reaction Status Date / Time shellfish derived Allergy Severe HIVES Verified 07/27/20 23:04 Home Medications Medication Instructions Recorded Confirmed Type cholecalciferol (vitamin D3) 25 mcg PO DAILY 07/27/20 07/27/20 History [Vitamin D3] Personal History Living Arrangements: Home (had been living independently at home) Employment Status: Retired Marital Status: Beliefs That Will Affect Care: Rastafarian (Pt is reportedly strongly restorationist, Muslim) Patient History Social History Smoking Status: Never smoker Preferred Language: Fijian Communication Ability: Effective Rotating Equipment Specialist Required: No Beliefs That Will Affect Care: Rastafarian (Pt is reportedly strongly restorationist, Muslim) marital status: / Current Living Situation: Alone Feels Safe at Home: No Assistive Devices: Walker Assistive Devices Comment: unsure of ambulatory devices at home Physical Exam Psychiatric: Orientation: alert and cooperative though conversation was limited significantly by hearing impairment Apperance: appropriately dressed, appropriately groomed and appeared stated age Thin, frail appearing female, laying in bed initially sleeping. Pt is appropriately dress, wearing a hospital gown. She appears somewhat disheveled, but level of hygiene appears adequate. Eye Contact: + fair eye contact Motor Behavior: no abnormal motor movements (observed while laying in bed) Speech: normal rate/rhythm/volume of speech (brief responses to questions) Affect: + blunted affect (not appearing overtly depressed) Mood: no depressed mood and no anxious mood "I'm ok" Suicidal Thoughts: denies suicidal thoughts Homicidal Thoughts: denies homicidal thoughts Insight: + fair insight (based on admittedly limited conversation) Judgement: + fair judgement (based on admittedly limited conversation) Vital Signs (Past 24 Hours): Last Vital Signs Temp 37.6 C H 07/29/20 13:13 Pulse 97 H 07/29/20 13:13 Resp 16 07/29/20 13:13 BP 107/60 07/29/20 13:13 Pulse Ox 95 07/29/20 13:13 Review of Systems Patient's ability to participate in conversation is limited by significant hearing impairment. Pt does not verbalize any physical complaints despite recent surgery. Results & Data (PSY) Medications Administered Aspirin (Aspirin 81 Mg Ectab) 81 mg PO BID KUSHAL Stop: 08/28/20 12:59 Last Admin: 07/29/20 14:02 Dose: 81 mg Documented by: [id number] Morphine Sulfate (Morphine Sulfate 2 Mg/Ml Carp) 2 mg IV Q4H PRN PRN Reason: Pain (rating 1-6) Stop: 08/11/20 07:28 Last Admin: 07/28/20 21:20 Dose: 2 mg Documented by: [id number] Morphine Sulfate (Morphine Sulfate 4 Mg/Ml 1 Ml Carp\\Vial) 4 mg IV Q4H PRN PRN Reason: Severe Pain (rating 7-10) Stop: 08/11/20 07:28 Last Admin: 07/28/20 07:40 Dose: 4 mg Documented by: [id number] Ondansetron HCl (Ondansetron Inj 2 Mg/Ml 2 Ml Vial) 4 mg IV Q6H PRN PRN Reason: Nausea Stop: 08/27/20 01:43 Last Admin: 07/28/20 15:33 Dose: 4 mg Documented by: [id number] Admin: 07/28/20 07:40 Dose: 4 mg Documented by: [id number] Vitamin D (Cholecalciferol 1,000 Units 25 Mcg Tab) 1,000 units PO DAILY [facility] Stop: 08/28/20 08:59 Last Admin: 07/29/20 08:39 Dose: 1,000 units Documented by: [id number] Coding Level of Care Code 56046 [facility] Intl Hosp Care Lvl 1
[2020-07-29] MEDS: ACETAMINOPHEN 500 MG TAB PO PRN (16:24)
--- NOTE | 2020-07-29 22:30 | Hospitalist Progress Note ---
Date of Service July 29, 2020 Assessment & Plan (1) Fall: 89-year-old female with PMH of colorectal cancer s/p resection in 2009, and breast cancer who presented to the ED due to a fall at home. Cause of the fall is unclear but likely mechanical. Has remained hemodynamically stable and head imaging negative. ECG pending. Requires admission due to left hip fracture, evaluation and possible surgical intervention. Fall Left hip fracture - Admit to medical floor - Left cemented hip Bipolar Hemiarthroplasty - On ASA 81 MG PO BID Rhabdomyolysis - resolved. Hypomagnesemia - replenished Abnormal CXR - Unclear abnormal findings on CXR--official read pending - Patient desatting on room air to 88% requiring 2L NC - Ordered CTA chest--follow results Passive SI - appreciate input from psych. LORA: NPO, NSS @80cc/hr DVT ppx:ASA 81 mg PO BID Dispo: Admit to medical floor Code Status: Full, per discussion with son (JAMESA), he will bring in patient's advanced directive (2) Closed fracture of left hip: as above. (3) Weakness: (4) Hypomagnesemia: (5) Rhabdomyolysis: (6) Passive suicidal ideations: (7) Abnormal chest x-ray: Admission and Anticipated Discharge Date Admission Date: July 27, 2020 Subjective Patient is hard of hearing but has no new complaints. Review of Systems Review of Systems: All systems reviewed & are unremarkable except as noted in HPI & below Physical Exam Physical Exam: Constitutional: + thin, + frail appearing, + lethargic and + underweight; no acute distress Eyes: PERRL, conjunctivae normal, anicteric sclerae ENMT: external ear and nose normal, oropharynx normal Neck: trachea midline, no thyromegaly Respiratory: normal respiratory effort, lungs clear to auscultation no labored breathing Auscultation: no crackles, no rales, no rhonchi and no wheezes Cardiovascular: RRR, no murmur, no edema Heart Sounds: normal S1 and normal S2 Gastrointestinal (Abdomen): normal bowel sounds, soft, nontender, no hepatosplenomegaly Skin: no rashes, warm and dry Results & Data Results & Data ([facility]) Vital Signs (Past 12 Hours) Vital Signs Temp Pulse Resp BP Pulse Ox 07/29/20 17:09 37.4 C 106/63 07/29/20 16:03 37.7 C H 99 H 16 95/53 L 94 07/29/20 13:13 37.6 C H 97 H 16 107/60 95 PG Care Time/CCT Total # of Minutes Spent Total Time Spent with Patient: Total time spent is greater than 50% in coordination of care (as documented) at patient's floor/unit and/or counseling patient: Coding Level of Care Code 22624 Subseq Hosp Care Lvl 2 Diagnoses Fall W19.XXXA Closed fracture of left hip S72.002A Encounter type: initial encounter Weakness R53.1 Hypomagnesemia E83.42 Rhabdomyolysis M62.82 Passive suicidal ideations R45.851 Abnormal chest x-ray R93.89 Time Spent (min) 25 (1) Closed fracture of left hip Encounter type: initial encounter Qualified Code(s): S72.002A - Fracture of unspecified part of neck of left femur, initial encounter for closed fracture
[2020-07-30 07:11] LABS: Hematocrit (blood only) 24.4 % (37-47); Hemoglobin 8.2 g/dL (12.0-16.0); Mean Corpuscular Hemoglobin 30.7 pg (25-34); Mean Corpuscular Hgb Conc 33.6 g/dL (32-36); Mean Corpuscular Volume 91.4 fL (80-100); Mean Platelet Volume 10.4 fL (7.4-10.4); Platelet Count 113 K/uL (130-400); RDW Coefficient of Variation 13.3 % (11.5-14.5); RDW Standard Deviation 44.3 fL (36.4-46.3); Red Blood Count 2.67 M/uL (4.2-5.4); White Blood Count 4.19 K/uL (4.8-10.8)
[2020-07-30 07:23] LABS: BUN Creatinine Ratio 24.2 (10-20); Calcium 7.9 mg/dl (8.5-10.1); Creatinine Clr Calc Pharmacy 40.7 ml/min; Est GFR (African American) 87.5; Est GFR (Non-African American) 75.5; Potassium 3.4 mmol/L (3.5-5.1)
--- NOTE | 2020-07-30 08:22 | Progress Notes ---
DATE: 07/30/2020 SUBJECTIVE: An 89-year-old white female postop day 2 from a left cemented bipolar hip arthroplasty for fracture. She is resting comfortably. No apparent pain. OBJECTIVE: VITAL SIGNS: Temperature 37.2. Vital signs stable. GENERAL: Shows a frail elderly female. She is lying in bed, looks quite comfortable. EXTREMITIES: Examination of the left leg reveals leg lengths to be equal. Dressing is clean, dry and intact. Thigh is soft and supple. Minimal swelling. She is neurologically stable. LABORATORY DATA: Hemoglobin 8.2. Hematocrit 24.4. White cell count normal. Electrolytes are pending. ASSESSMENT: An 89-year-old white female postop day 2 from a left cemented bipolar hip arthroplasty for fracture, doing reasonably well. Pain seems to be controlled. Hip is located. She is neurologically intact. Hemoglobin was a bit low, but likely just related to the surgery and volume replacement. She is currently asymptomatic. PLAN: 1. DVT prophylaxis including thigh-high TEDs, SCDs, and recommend a baby aspirin twice a day for the next 6 weeks. 2. PT/OT. She can weightbear as tolerated. Does need to obey hip precautions. 3. Pain control, doing okay with current pain regimen. 4. Anemia. Currently, asymptomatic. Continue iron supplementation. 5. Medical management as per the medicine service. 6. Disposition: She is orthopedically okay for discharge any time. I need to see her back 2-3 weeks out from surgery date. Any orthopedic questions can be directed to me at [phone].
[2020-07-30] MEDS: CHOLECALCIFEROL 1,000 UNITS 25 MCG TAB PO SCH (10:19)
[2020-07-30] MEDS: ASPIRIN 81 MG ECTAB PO SCH ×2 (10:20→20:48)
[2020-07-30] MEDS ORDERED: LACTATED RINGER'S 1,000 ML IV SCH (12:00)
--- NOTE | 2020-07-30 22:30 | Hospitalist Progress Note ---
Date of Service July 30, 2020 Assessment & Plan (1) Fall: 89-year-old female with PMH of colorectal cancer s/p resection in 2009, and breast cancer who presented to the ED due to a fall at home. Cause of the fall is unclear but likely mechanical. Has remained hemodynamically stable and head imaging negative. ECG pending. Requires admission due to left hip fracture, evaluation and possible surgical intervention. Fall Left hip fracture - Admit to medical floor - Left cemented hip Bipolar Hemiarthroplasty - On ASA 81 MG PO BID Rhabdomyolysis - resolved. Hypomagnesemia - replenished Abnormal CXR - Unclear abnormal findings on CXR--official read pending - Patient desatting on room air to 88% requiring 2L NC - Ordered CTA chest--follow results -now on room air Passive SI - appreciate input from psych. DVT ppx:ASA 81 mg PO BID Dispo: Admit to medical floor Code Status: Full, per discussion with son (NORMA), he will bring in patient's advanced directive (2) Closed fracture of left hip: as above. (3) Weakness: (4) Hypomagnesemia: (5) Rhabdomyolysis: (6) Passive suicidal ideations: (7) Abnormal chest x-ray: (8) Acute blood loss anemia: hemoglobin dropped to 8 after surgery will monitor (9) Protein calorie malnutrition: BMI is 16. consult storekeeper engineering Admission and Anticipated Discharge Date Admission Date: July 27, 2020 Subjective Patient reports feeling dizzy when sitting up. Review of Systems Review of Systems: All systems reviewed & are unremarkable except as noted in HPI & below Physical Exam Physical Exam: Constitutional: + thin, + frail appearing, + underweight; no acute distress Eyes: PERRL, conjunctivae normal, anicteric sclerae ENMT: external ear and nose normal, oropharynx normal Neck: trachea midline, no thyromegaly Respiratory: normal respiratory effort, lungs clear to auscultation no labored breathing Auscultation: no crackles, no rales, no rhonchi and no wheezes Cardiovascular: RRR, no murmur, no edema Heart Sounds: normal S1 and normal S2 Gastrointestinal (Abdomen): normal bowel sounds, soft, nontender, no hepatosplenomegaly Skin: no rashes, warm and dry Results & Data Results & Data ([facility]) Vital Signs (Past 12 Hours) Vital Signs Temp Pulse Resp BP BP Pulse Ox 07/30/20 15:38 37.1 C 76 16 119/69 119/69 96 07/30/20 10:42 108 H 94/59 L 93 PG Care Time/CCT Total # of Minutes Spent Total Time Spent with Patient: Total time spent is greater than 50% in coordination of care (as documented) at patient's floor/unit and/or counseling patient: Coding Level of Care Code 57086 Subseq Hosp Care Lvl 3 Diagnoses Fall W19.XXXA Closed fracture of left hip S72.002A Encounter type: initial encounter Weakness R53.1 Hypomagnesemia E83.42 Rhabdomyolysis M62.82 Passive suicidal ideations R45.851 Abnormal chest x-ray R93.89 Acute blood loss anemia D62 Protein calorie malnutrition E46 (1) Closed fracture of left hip Encounter type: initial encounter Qualified Code(s): S72.002A - Fracture of unspecified part of neck of left femur, initial encounter for closed fracture
[2020-07-31 06:03] LABS: Basophils # (auto) 0.01 K/uL (0-0.2); Basophils % (auto) 0.2 %; Eosinophils # (auto) 0.08 K/uL (0-0.5); Eosinophils % (auto) 1.9 %; Hematocrit (blood only) 25.7 % (37-47); Hemoglobin 8.5 g/dL (12.0-16.0); Immature Granulocytes # (auto) 0.01 K/uL (0.00-0.02); Immature Granulocytes % (auto) 0.2 %; Lymphocytes # (auto) 0.82 K/uL (1.2-3.4); Lymphocytes % (auto) 19.5 %; Mean Corpuscular Hemoglobin 30.2 pg (25-34); Mean Corpuscular Hgb Conc 33.1 g/dL (32-36); Mean Corpuscular Volume 91.5 fL (80-100); Mean Platelet Volume 10.4 fL (7.4-10.4); Monocytes # (auto) 0.35 K/uL (0.11-0.59); Monocytes % (auto) 8.3 %; Neutrophils # (auto) 2.93 K/uL (1.4-6.5); Neutrophils % (auto) 69.9 %; Platelet Count 146 K/uL (130-400); RDW Coefficient of Variation 13.1 % (11.5-14.5); RDW Standard Deviation 44.5 fL (36.4-46.3); Red Blood Count 2.81 M/uL (4.2-5.4)
[2020-07-31 07:42] LABS: BUN Creatinine Ratio 20.9 (10-20); Calcium 7.8 mg/dl (8.5-10.1); Creatinine Clr Calc Pharmacy 35.7 ml/min; Est GFR (African American) 74.6; Est GFR (Non-African American) 64.4; Potassium 3.5 mmol/L (3.5-5.1)
--- NOTE | 2020-07-31 08:36 | Progress Notes ---
DATE: 07/31/2020 SUBJECTIVE: An 89-year-old white female postop day 3 from a left cemented bipolar hip arthroplasty for fracture. She seems to be doing reasonably well. Pain seems to be reasonably controlled. No new complaints. OBJECTIVE: VITAL SIGNS: Temperature 37.6. Vital signs stable. GENERAL: Shows a pleasant elderly female. She is sitting up in bed, looks reasonably comfortable. Very difficult to communicate due to her difficulty hearing. She does follow simple commands. Her leg is well aligned. Dressing is clean, dry and intact. There is no drainage. She can dorsiflex and plantarflex her foot appropriately. LABORATORY DATA: Hemoglobin 8.5. Hematocrit 25.7. Electrolytes are pending. ASSESSMENT: An 89-year-old white female postop day 3 from a left cemented bipolar hip arthroplasty for fracture, doing pretty well. Hip is located. Pain is controlled. She is neurologically intact. Her hemoglobin is stable. PLAN: 1. DVT prophylaxis including thigh-high TEDs, SCDs, and recommend a baby aspirin twice a day for 6 weeks. 2. PT/OT. She can weightbear as tolerated. She does need to obey hip precautions for the next 6 weeks. 3. Pain control, doing okay with current pain regimen. 4. Anemia. Hemoglobin appears stable. 5. Medical management as per the medicine service. 6. Disposition: She can be orthopedically discharge any time. I need to see her back in 2-3 weeks from surgery date. I am going to sign off for now as I am not director of national sales the weekend. Any orthopedic questions can be directed to me at any time at [phone].
[2020-07-31] MEDS: ASPIRIN 81 MG ECTAB PO SCH ×2 (08:40→21:17)
[2020-07-31] MEDS: CHOLECALCIFEROL 1,000 UNITS 25 MCG TAB PO SCH (08:40)
--- NOTE | 2020-07-31 16:43 | Hospitalist Progress Note ---
Date of Service July 31, 2020 Assessment & Plan (1) Closed fracture of left hip: S/p left cemented hip Bipolar Hemiarthroplasty with Dr. Starks on 07/28/2020. - Weight-bearing as tolerated. She does need to obey hip precautions for the next 6 weeks. - On ASA 81 MG PO BID x 6 weeks. (2) Fall: Mechanical in nature. - PT/OT -> Rehab (3) Passive suicidal ideations: Ongoing for this admission. Today, she reports she doesn't understand why "God has forsaken [her]" and that she doesn't understand why she is "being allowed to ." - Appreciate psych recommendations (4) Abnormal chest x-ray: CTA chest on admission showed a 4.1 x 3.7 cm lobular left perihilar low density lesion. This concerning for a pulmonary mass. There is also an enlarged and partially calcified left hilar lymph node measuring 1.7 cm which appears to demonstrate a small endobronchial component. Bronchoscopy recommended for further evaluation and to exclude a pulmonary mass. - Will discuss with patient and son. - Outpatient pulmonary referral. (5) Acute blood loss anemia: Hemoglobin dropped to 8 after surgery. - Will monitor (6) Protein calorie malnutrition: BMI is 16. - Consult dimension quarry supervisor (7) DVT prophylaxis: ASA 81 mg PO BID x 6 weeks after surgery Admission and Anticipated Discharge Date Admission Date: July 27, 2020 Subjective Very dispirited today. Asks why she isn't being "allowed to " and why "God has forsaken [her]." Denies significant pain. Reports no fevers/chills, chest pain, shortness of breath, abdominal pain, nausea, or vomiting. Physical Exam Constitutional: WD/WN, vitals as above Eyes: EOM intact bilaterally; no conjunctival abnormality ENMT: external ear and nose normal, oropharynx normal Neck: trachea midline, no thyromegaly normal visual inspection Respiratory: normal respiratory effort, lungs clear to auscultation no respiratory distress Cardiovascular: RRR, no murmur, no edema Gastrointestinal (Abdomen): Inspection/Auscultation: abdomen normal to inspection; abdomen not distended Musculoskeletal: no cyanosis or clubbing, extremities motor strength 5/5 Skin: no rashes, warm and dry Neurologic: moves all extremities and awake Psychiatric: Orientation: alert, oriented to person and cooperative Results & Data Results & Data ([facility]) Vital Signs (Past 12 Hours) Vital Signs Temp Pulse Resp BP BP Pulse Ox 07/31/20 15:01 36.9 C 87 18 122/71 98 07/31/20 07:18 37.6 C H 76 15 122/68 95 PG Care Time/CCT Total # of Minutes Spent Total Time Spent with Patient: Total time spent is greater than 50% in coordination of care (as documented) at patient's floor/unit and/or counseling patient: Coding Level of Care Code 33295 Subseq Hosp Care Lvl 2 Diagnoses Closed fracture of left hip S72.002A Encounter type: initial encounter Fall W19.XXXA Passive suicidal ideations R45.851 Abnormal chest x-ray R93.89 Acute blood loss anemia D62 Protein calorie malnutrition E46 DVT prophylaxis Z29.9 (1) Closed fracture of left hip Encounter type: initial encounter Qualified Code(s): S72.002A - Fracture of unspecified part of neck of left femur, initial encounter for closed fracture
[2020-08-01 09:04] LABS: Basophils # (auto) 0.01 K/uL (0-0.2); Basophils % (auto) 0.3 %; Eosinophils # (auto) 0.11 K/uL (0-0.5); Eosinophils % (auto) 2.8 %; Hematocrit (blood only) 25.8 % (37-47); Hemoglobin 8.5 g/dL (12.0-16.0); Immature Granulocytes # (auto) 0.01 K/uL (0.00-0.02); Immature Granulocytes % (auto) 0.3 %; Lymphocytes # (auto) 0.94 K/uL (1.2-3.4); Lymphocytes % (auto) 24.4 %; Mean Corpuscular Hemoglobin 30.2 pg (25-34); Mean Corpuscular Hgb Conc 32.9 g/dL (32-36); Mean Corpuscular Volume 91.8 fL (80-100); Monocytes # (auto) 0.33 K/uL (0.11-0.59); Monocytes % (auto) 8.5 %; Neutrophils # (auto) 2.46 K/uL (1.4-6.5); Neutrophils % (auto) 63.7 %; Platelet Count 173 K/uL (130-400); RDW Standard Deviation 44.1 fL (36.4-46.3); Red Blood Count 2.81 M/uL (4.2-5.4); White Blood Count 3.86 K/uL (4.8-10.8)
[2020-08-01] MEDS: CHOLECALCIFEROL 1,000 UNITS 25 MCG TAB PO SCH (09:09)
[2020-08-01] MEDS: ASPIRIN 81 MG ECTAB PO SCH ×2 (09:10→20:23)
[2020-08-01 09:28] LABS: BUN Creatinine Ratio 23.4 (10-20); Calcium 8.3 mg/dl (8.5-10.1); Creatinine Clr Calc Pharmacy 43.8 ml/min; Est GFR (African American) 90.8; Est GFR (Non-African American) 78.3; Magnesium 1.4 mg/dl (1.8-2.4); Potassium 3.6 mmol/L (3.5-5.1)
[2020-08-01] MEDS: ACETAMINOPHEN 500 MG TAB PO PRN (11:52)
[2020-08-01] MEDS ORDERED: INFLUENZA VACCINE HIGH DOSE 65+ 0.7 ML SYR IM ONE (12:00)
[2020-08-01] MEDS ORDERED: INFLUENZA ADMINISTRATION CHARGE ONE (12:00)
[2020-08-01] MEDS ORDERED: PNEUMOCOCCAL POLYSACCHARIDES 25 MCG/0.5 ML VIAL/SYR IM ONE (12:00)
[2020-08-01] MEDS ORDERED: PNEUMOCOCCAL ADMINISTRATION CHARGE ONE (12:00)
--- NOTE | 2020-08-01 13:27 | Hospitalist Progress Note ---
Date of Service August 01, 2020 Assessment & Plan (1) Closed fracture of left hip: S/p left cemented hip Bipolar Hemiarthroplasty with Dr. Starks on 07/28/2020. - Weight-bearing as tolerated. She does need to obey hip precautions for the next 6 weeks. - On ASA 81 MG PO BID x 6 weeks. (End date: 09/07/2020) (2) Fall: Mechanical in nature. - PT/OT -> Rehab (3) Passive suicidal ideations: Ongoing for this admission. Today, she reports she doesn't understand why "God has forsaken [her]" and that she doesn't understand why she is "being allowed to ." - Appreciate psych recommendations - Will encourage patient daily on progress. (4) Abnormal chest x-ray: CTA chest on admission showed a 4.1 x 3.7 cm lobular left perihilar low density lesion. This concerning for a pulmonary mass. There is also an enlarged and partially calcified left hilar lymph node measuring 1.7 cm which appears to demonstrate a small endobronchial component. Bronchoscopy recommended for further evaluation and to exclude a pulmonary mass. - Discussed with son on 07/31; will gently discuss with patient without further dispiriting. - Outpatient pulmonary referral. (5) Acute blood loss anemia: Hemoglobin dropped to 8 after surgery. - Will monitor (6) Protein calorie malnutrition: BMI is 16. - Consult tank house operator (7) DVT prophylaxis: ASA 81 mg PO BID x 6 weeks after surgery Admission and Anticipated Discharge Date Admission Date: July 27, 2020 Subjective Less dispirited today. Denies significant pain. Reports no fevers/chills, chest pain, shortness of breath, abdominal pain, nausea, or vomiting. Physical Exam Constitutional: WD/WN, vitals as above Eyes: EOM intact bilaterally; no conjunctival abnormality ENMT: external ear and nose normal, oropharynx normal Neck: trachea midline, no thyromegaly normal visual inspection Respiratory: normal respiratory effort, lungs clear to auscultation no respiratory distress Cardiovascular: RRR, no murmur, no edema Gastrointestinal (Abdomen): Inspection/Auscultation: abdomen normal to inspection; abdomen not distended Musculoskeletal: no cyanosis or clubbing, extremities motor strength 5/5 Skin: no rashes, warm and dry Neurologic: moves all extremities and awake Psychiatric: Orientation: alert, oriented to person and cooperative Results & Data Results & Data ([facility]) Vital Signs (Past 12 Hours) Vital Signs Temp Pulse Resp BP Pulse Ox 08/01/20 07:55 37.2 C 74 15 107/61 94 PG Care Time/CCT Total # of Minutes Spent Total Time Spent with Patient: Total time spent is greater than 50% in coordination of care (as documented) at patient's floor/unit and/or counseling patient: Coding Level of Care Code 68483 Subseq Hosp Care Lvl 2 Diagnoses Closed fracture of left hip S72.002A Encounter type: initial encounter Fall W19.XXXA Passive suicidal ideations R45.851 Abnormal chest x-ray R93.89 Acute blood loss anemia D62 Protein calorie malnutrition E46 DVT prophylaxis Z29.9 (1) Closed fracture of left hip Encounter type: initial encounter Qualified Code(s): S72.002A - Fracture of unspecified part of neck of left femur, initial encounter for closed fracture
[2020-08-01] MEDS: MAGNESIUM SULFATE / D5W 1 GM/100 ML BAG IV SCH ×3 (14:09→17:56)
[2020-08-02] MEDS: CHOLECALCIFEROL 1,000 UNITS 25 MCG TAB PO SCH (08:45)
[2020-08-02] MEDS: ACETAMINOPHEN 500 MG TAB PO PRN (08:48)
[2020-08-02] MEDS: ASPIRIN 81 MG ECTAB PO SCH ×2 (09:49→20:04)
--- NOTE | 2020-08-02 14:23 | Hospitalist Progress Note ---
Date of Service August 02, 2020 Assessment & Plan (1) Closed fracture of left hip: S/p left cemented hip Bipolar Hemiarthroplasty with Dr. Starks on 07/28/2020. - Weight-bearing as tolerated. She does need to obey hip precautions for the next 6 weeks. - On ASA 81 MG PO BID x 6 weeks. (End date: 09/07/2020) - Doing better today. Stood and moved to the bedside chair. (2) Fall: Mechanical in nature. - PT/OT -> Rehab; hopefully [place]. (3) Passive suicidal ideations: Ongoing for this admission. Today, she reports she doesn't understand why "God has forsaken [her]" and that she doesn't understand why she is "being allowed to ." - Appreciate psych recommendations - Will encourage patient daily on progress. (4) Abnormal chest x-ray: CTA chest on admission showed a 4.1 x 3.7 cm lobular left perihilar low density lesion. This concerning for a pulmonary mass. There is also an enlarged and partially calcified left hilar lymph node measuring 1.7 cm which appears to demonstrate a small endobronchial component. Bronchoscopy recommended for further evaluation and to exclude a pulmonary mass. - Discussed with son on 07/31. - Brought it up to patient on 08/02, but she did not really comprehend/respond. Will continue to mention it to her. - Outpatient pulmonary referral. (5) Acute blood loss anemia: Hemoglobin dropped to 8 after surgery. - Will monitor - Stable on 08/01 (6) Protein calorie malnutrition: BMI is 16. - Consult senior business development analyst (7) DVT prophylaxis: ASA 81 mg PO BID x 6 weeks after surgery Admission and Anticipated Discharge Date Admission Date: July 27, 2020 Subjective Patient reports she has pain, but "can't describe it" and that she just wishes she could lie down and . Reports no fevers/chills, chest pain, shortness of breath, abdominal pain, nausea, or vomiting. Physical Exam Constitutional: WD/WN, vitals as above + acute distress Eyes: EOM intact bilaterally; no conjunctival abnormality ENMT: external ear and nose normal, oropharynx normal Neck: trachea midline, no thyromegaly normal visual inspection Respiratory: normal respiratory effort, lungs clear to auscultation no respiratory distress Cardiovascular: RRR, no murmur, no edema Gastrointestinal (Abdomen): Inspection/Auscultation: abdomen normal to inspection; abdomen not distended Musculoskeletal: no cyanosis or clubbing, extremities motor strength 5/5 Skin: no rashes, warm and dry Neurologic: moves all extremities and awake Psychiatric: Orientation: alert, oriented to person and cooperative Results & Data Results & Data ([facility]) Vital Signs (Past 12 Hours) Vital Signs Temp Pulse Resp BP Pulse Ox 08/02/20 07:27 36.7 C 90 16 106/63 97 PG Care Time/CCT Total # of Minutes Spent Total Time Spent with Patient: Total time spent is greater than 50% in coordination of care (as documented) at patient's floor/unit and/or counseling patient: Coding Level of Care Code 71249 Subseq Hosp Care Lvl 2 Diagnoses Closed fracture of left hip S72.002A Encounter type: initial encounter Fall W19.XXXA Passive suicidal ideations R45.851 Abnormal chest x-ray R93.89 Acute blood loss anemia D62 Protein calorie malnutrition E46 DVT prophylaxis Z29.9 (1) Closed fracture of left hip Encounter type: initial encounter Qualified Code(s): S72.002A - Fracture of unspecified part of neck of left femur, initial encounter for closed fracture
[2020-08-02] MEDS: MoRPHine SULFATE 2 MG/ML CARP IV PRN (20:06)
[2020-08-02] MEDS: ONDANSETRON INJ 2 MG/ML 2 ML VIAL IV PRN (23:12)
[2020-08-03 06:26] LABS: Hematocrit (blood only) 28.4 % (37-47); Hemoglobin 9.1 g/dL (12.0-16.0); Mean Corpuscular Hemoglobin 29.9 pg (25-34); Mean Corpuscular Volume 93.4 fL (80-100); Mean Platelet Volume 9.6 fL (7.4-10.4); Platelet Count 295 K/uL (130-400); RDW Coefficient of Variation 13.2 % (11.5-14.5); Red Blood Count 3.04 M/uL (4.2-5.4); White Blood Count 8.25 K/uL (4.8-10.8)
[2020-08-03 06:48] LABS: BUN Creatinine Ratio 38.3 (10-20); Calcium 8.2 mg/dl (8.5-10.1); Creatinine Clr Calc Pharmacy 37.5 ml/min; Est GFR (African American) 79.3; Est GFR (Non-African American) 68.5; Magnesium 2.3 mg/dl (1.8-2.4)
[2020-08-03] MEDS: CHOLECALCIFEROL 1,000 UNITS 25 MCG TAB PO SCH (09:32)
[2020-08-03] MEDS: PANTOprazole 40 MG TAB PO SCH (09:34)
[2020-08-03] MEDS: ASPIRIN 81 MG ECTAB PO SCH (09:34)
[2020-08-03] MEDS: ONDANSETRON INJ 2 MG/ML 2 ML VIAL IV PRN ×2 (13:24→17:30)
--- NOTE | 2020-08-03 15:29 | Hospitalist Progress Note ---
Date of Service August 03, 2020 Assessment & Plan (1) Closed fracture of left hip: S/p left cemented hip Bipolar Hemiarthroplasty with Dr. Starks on 07/28/2020. - Weight-bearing as tolerated. She does need to obey hip precautions for the next 6 weeks. - On ASA 81 MG PO BID until 08/03 when she had significant stomach pain and refused the aspirin. Added PPI. - Switched to Lovenox 30 mg SQ daily x 6 weeks. (End date: 09/07/2020) - Stable from orthopedic standpoint. Ready for discharge. (2) Fall: Mechanical in nature. - PT/OT -> Rehab; hopefully [place]. (3) Passive suicidal ideations: Ongoing for this admission. Today, she reports she doesn't understand why "God has forsaken [her]" and that she doesn't understand why she is "being allowed to ." - Appreciate psych recommendations - Will encourage patient daily on progress. Did reach out to psych on 08/03 for possible reassessment as she continues to say she wants to . (4) Abnormal chest x-ray: CTA chest on admission showed a 4.1 x 3.7 cm lobular left perihilar low density lesion. This concerning for a pulmonary mass. There is also an enlarged and partially calcified left hilar lymph node measuring 1.7 cm which appears to demonstrate a small endobronchial component. Bronchoscopy recommended for further evaluation and to exclude a pulmonary mass. - Discussed with son on 07/31. - Brought it up to patient on 08/02, but she did not really comprehend/respond. Will continue to mention it to her. - Outpatient pulmonary referral. (5) Acute blood loss anemia: Hemoglobin dropped to 8 after surgery. - Will monitor - Stable on 08/03 (6) Protein calorie malnutrition: BMI is 16. - Consulted brokerage branch manager - Began vanilla Boost BID per patient preference. (7) DVT prophylaxis: Lovenox 30 mg SQ daily x 6 weeks after surgery Admission and Anticipated Discharge Date Admission Date: July 27, 2020 Subjective She reports she just wants to lie down on the bed and . Physical Exam Constitutional: WD/WN, vitals as above + acute distress Eyes: EOM intact bilaterally; no conjunctival abnormality ENMT: external ear and nose normal, oropharynx normal Neck: trachea midline, no thyromegaly normal visual inspection Respiratory: normal respiratory effort, lungs clear to auscultation no respiratory distress Cardiovascular: RRR, no murmur, no edema Gastrointestinal (Abdomen): Inspection/Auscultation: abdomen normal to inspection; abdomen not distended Musculoskeletal: no cyanosis or clubbing, extremities motor strength 5/5 Skin: no rashes, warm and dry Neurologic: moves all extremities and awake Psychiatric: Orientation: alert and oriented to person; + uncooperative Affect: + irritable affect Results & Data Results & Data ([facility]) Vital Signs (Past 12 Hours) Vital Signs Temp Pulse Resp BP Pulse Ox 08/03/20 07:22 37.2 C 92 H 14 119/65 97 PG Care Time/CCT Total # of Minutes Spent Total Time Spent with Patient: Total time spent is greater than 50% in coordination of care (as documented) at patient's floor/unit and/or counseling patient: Coding Level of Care Code 55380 Subseq Hosp Care Lvl 2 Diagnoses Closed fracture of left hip S72.002A Encounter type: initial encounter Fall W19.XXXA Passive suicidal ideations R45.851 Abnormal chest x-ray R93.89 Acute blood loss anemia D62 Protein calorie malnutrition E46 DVT prophylaxis Z29.9 (1) Closed fracture of left hip Encounter type: initial encounter Qualified Code(s): S72.002A - Fracture of unspecified part of neck of left femur, initial encounter for closed fracture
[2020-08-03] MEDS: ACETAMINOPHEN 500 MG TAB PO PRN (20:00)
[2020-08-04 06:29] LABS: Basophils # (auto) 0.03 K/uL (0-0.2); Basophils % (auto) 0.4 %; Eosinophils # (auto) 0.11 K/uL (0-0.5); Eosinophils % (auto) 1.5 %; Hematocrit (blood only) 27.2 % (37-47); Hemoglobin 8.7 g/dL (12.0-16.0); Immature Granulocytes # (auto) 0.03 K/uL (0.00-0.02); Immature Granulocytes % (auto) 0.4 %; Lymphocytes # (auto) 1.04 K/uL (1.2-3.4); Lymphocytes % (auto) 14.4 %; Mean Corpuscular Hemoglobin 30.2 pg (25-34); Mean Corpuscular Volume 94.4 fL (80-100); Mean Platelet Volume 9.6 fL (7.4-10.4); Monocytes # (auto) 0.55 K/uL (0.11-0.59); Monocytes % (auto) 7.6 %; Neutrophils # (auto) 5.44 K/uL (1.4-6.5); Neutrophils % (auto) 75.7 %; Platelet Count 324 K/uL (130-400); RDW Coefficient of Variation 13.2 % (11.5-14.5); RDW Standard Deviation 45.4 fL (36.4-46.3); Red Blood Count 2.88 M/uL (4.2-5.4)
[2020-08-04 07:03] LABS: BUN Creatinine Ratio 37.9 (10-20); Calcium 8.5 mg/dl (8.5-10.1); Creatinine Clr Calc Pharmacy 37.1 ml/min; Est GFR (African American) 78.1; Est GFR (Non-African American) 67.4; Magnesium 1.9 mg/dl (1.8-2.4); Potassium 4.5 mmol/L (3.5-5.1)
[2020-08-04] MEDS: ENOXAPARIN INJ 30 MG/0.3 ML SYR SQ SCH (09:18)
[2020-08-04] MEDS: PANTOprazole 40 MG TAB PO SCH (09:19)
[2020-08-04] MEDS: CHOLECALCIFEROL 1,000 UNITS 25 MCG TAB PO SCH (09:19)
[2020-08-04] MEDS: ACETAMINOPHEN 500 MG TAB PO PRN (09:23)
--- NOTE | 2020-08-04 15:44 | Hospitalist Progress Note ---
Date of Service August 04, 2020 Assessment & Plan (1) Closed fracture of left hip: S/p left cemented hip Bipolar Hemiarthroplasty with Dr. Starks on 07/28/2020. - Weight-bearing as tolerated. She does need to obey hip precautions for the next 6 weeks. - On ASA 81 MG PO BID until 08/03 when she had significant stomach pain and refused the aspirin. Added PPI. - Switched to Lovenox 30 mg SQ daily x 6 weeks. (End date: 09/07/2020) - Stable from orthopedic standpoint. Ready for discharge. - Will add tramadol for pain control and adjust as needed. Can go to [facility] tomorrow if she participates in rehab. (2) Fall: Mechanical in nature. - PT/OT -> Rehab; hopefully [place]. (3) Passive suicidal ideations: Ongoing for this admission. Today, she reports she doesn't understand why "God has forsaken [her]" and that she doesn't understand why she is "being allowed to ." - Appreciate psych recommendations - Will encourage patient daily on progress. Did reach out to psych on 08/04 for possible reassessment as she continues to say she wants to . (4) Abnormal chest x-ray: CTA chest on admission showed a 4.1 x 3.7 cm lobular left perihilar low density lesion. This concerning for a pulmonary mass. There is also an enlarged and partially calcified left hilar lymph node measuring 1.7 cm which appears to demonstrate a small endobronchial component. Bronchoscopy recommended for further evaluation and to exclude a pulmonary mass. - Discussed with son on 07/31. - Brought it up to patient on 08/02, but she did not really comprehend/respond. Will continue to mention it to her. - Outpatient pulmonary referral. (5) Acute blood loss anemia: Hemoglobin dropped to 8 after surgery. - Will monitor - Stable on 08/03 (6) Protein calorie malnutrition: BMI is 16. - Consulted blind hooker - Began vanilla Boost BID per patient preference. (7) DVT prophylaxis: Lovenox 30 mg SQ daily x 6 weeks after surgery Admission and Anticipated Discharge Date Admission Date: July 27, 2020 Subjective Denies shortness of breath. No chest pain or stomach pain. Reports pain "yes and no" in the left hip. Physical Exam Constitutional: WD/WN, vitals as above + acute distress Eyes: EOM intact bilaterally; no conjunctival abnormality ENMT: external ear and nose normal, oropharynx normal Neck: trachea midline, no thyromegaly normal visual inspection Respiratory: normal respiratory effort, lungs clear to auscultation no respiratory distress Cardiovascular: RRR, no murmur, no edema Gastrointestinal (Abdomen): Inspection/Auscultation: abdomen normal to inspection; abdomen not distended Musculoskeletal: no cyanosis or clubbing, extremities motor strength 5/5 Skin: no rashes, warm and dry Neurologic: moves all extremities and awake Psychiatric: Orientation: alert and oriented to person; + uncooperative A ffect: + irritable affect Results & Data Results & Data ([facility]) Vital Signs (Past 12 Hours) Vital Signs Temp Pulse Resp BP Pulse Ox 08/04/20 15:19 36.8 C 95 H 16 97/63 L 95 08/04/20 07:32 36.7 C 77 14 106/63 96 PG Care Time/CCT Total # of Minutes Spent Total Time Spent with Patient: Total time spent is greater than 50% in coordination of care (as documented) at patient's floor/unit and/or counseling patient: Coding Level of Care Code 22062 Subseq Hosp Care Lvl 2 Diagnoses Closed fracture of left hip S72.002A Encounter type: initial encounter Fall W19.XXXA Passive suicidal ideations R45.851 Abnormal chest x-ray R93.89 Acute blood loss anemia D62 Protein calorie malnutrition E46 DVT prophylaxis Z29.9 (1) Closed fracture of left hip Encounter type: initial encounter Qualified Code(s): S72.002A - Fracture of unspecified part of neck of left femur, initial encounter for closed fracture
[2020-08-04] MEDS ORDERED: traMADol HCL 50 MG TABLET PO PRN (15:49)
[2020-08-05 06:14] LABS: Basophils # (auto) 0.01 K/uL (0-0.2); Basophils % (auto) 0.2 %; Eosinophils % (auto) 1.7 %; Hematocrit (blood only) 24.5 % (37-47); Hemoglobin 7.8 g/dL (12.0-16.0); Immature Granulocytes # (auto) 0.02 K/uL (0.00-0.02); Immature Granulocytes % (auto) 0.3 %; Lymphocytes # (auto) 0.95 K/uL (1.2-3.4); Lymphocytes % (auto) 16.4 %; Mean Corpuscular Hemoglobin 29.9 pg (25-34); Mean Corpuscular Hgb Conc 31.8 g/dL (32-36); Mean Corpuscular Volume 93.9 fL (80-100); Mean Platelet Volume 9.3 fL (7.4-10.4); Monocytes # (auto) 0.49 K/uL (0.11-0.59); Monocytes % (auto) 8.5 %; Neutrophils # (auto) 4.21 K/uL (1.4-6.5); Neutrophils % (auto) 72.9 %; Platelet Count 334 K/uL (130-400); RDW Coefficient of Variation 13.1 % (11.5-14.5); RDW Standard Deviation 44.4 fL (36.4-46.3); Red Blood Count 2.61 M/uL (4.2-5.4); White Blood Count 5.78 K/uL (4.8-10.8)
[2020-08-05 06:36] LABS: RBC Morphology Unremarkable
[2020-08-05 06:44] LABS: BUN Creatinine Ratio 33.8 (10-20); Creatinine Clr Calc Pharmacy 31.8 ml/min; Est GFR (African American) 64.8; Est GFR (Non-African American) 55.9; Magnesium 1.8 mg/dl (1.8-2.4); Potassium 4.4 mmol/L (3.5-5.1)
[2020-08-05] MEDS: ENOXAPARIN INJ 30 MG/0.3 ML SYR SQ SCH (08:52)
[2020-08-05] MEDS: PANTOprazole 40 MG TAB PO SCH (08:52)
[2020-08-05] MEDS: CHOLECALCIFEROL 1,000 UNITS 25 MCG TAB PO SCH (08:52)
--- NOTE | 2020-08-05 16:36 | Discharge Summary ---
Date of Service August 05, 2020 Admission HPI Per Admitting Provider Magalie Noel is an 89-year-old female with PMH of colorectal cancer s/p resection in 2009, and breast cancer who presented to the ED due to a fall at home. The patient lives alone and was not answering calls today from her son who lives in [place]. As such, he reached out to a neighbor of hers who went to her home and found her laying on the floor of her home. It is unclear how long the patient was on the floor but the son mentions that he talked to her yesterday (07/26) at 4:30PM and she was doing well at that time. The patient is an unreliable historian as she is very hard of hearing and is lethargic/confused. She does have hearing aids here with her but does not use them often and they are out of battery. However, she is able to hear and respond to some things. She mentions that she fell yesterday and hurt her hip, at which point she took an undetermined number of her 's oxycodone. She says that she took these because of pain related to her fall, not before falling. When EMS arrived at the home to assist, she reportedly mentioned that she just wanted to stay there and . Per phone discussion with patient's son, Mendez, he mentions that she has never expressed suicidal ideation and would be very opposed to suicide. Discussed patient's code status with son who is POA due to her current AMS. He mentions that she has advanced directive at home, which he or his brother will bring in when they travel to [place] tomorrow. Mentioned that she had mentioned not wanting "heroic measures" taken if her likelihood of survival/improvement were low. Nonetheless he preferred to make her full code for now and will change according to her AD. Principal Diagnosis closed left hip fracture Discharge Exam Constitutional: WD/WN, vitals as above + acute distress Eyes: EOM intact bilaterally; no conjunctival abnormality ENMT: external ear and nose normal, oropharynx normal Neck: trachea midline, no thyromegaly normal visual inspection Respiratory: normal respiratory effort, lungs clear to auscultation no respiratory distress Cardiovascular: RRR, no murmur, no edema Gastrointestinal (Abdomen): Inspection/Auscultation: abdomen normal to inspection; abdomen not distended Musculoskeletal: no cyanosis or clubbing, extremities motor strength 5/5 Skin: no rashes, warm and dry Neurologic: moves all extremities and awake Psychiatric: Orientation: alert and oriented to person; + uncooperative Affect: + irritable affect Discharge Data Allergies Allergy/AdvReac Type Severity Reaction Status Date / Time shellfish derived Allergy Severe HIVES Verified 07/27/20 23:04 Consultations 07/27/20 22:08 ED Decision to Admit Stat 07/28/20 01:44 Consult Psychiatry Routine 07/28/20 02:24 Consult Orthopedic Surgery Routine 07/28/20 14:00 Consult Case Management - Discharge Planning Routine Procedures Performed Operation Date: 07/28/20 10:50 Actual Procedures p Left Hip Bipolar Hemiarthroplasty(Left) - Srinath Starks MD Ordered Studies 07/27/20 21:09 CT head/brain wo con Urgent 07/27/20 23:27 CT angio chest PE protocol Urgent Hospital Course (1) Closed fracture of left hip: S/p left cemented hip Bipolar Hemiarthroplasty with Dr. Starks on 07/28/2020. - Weight-bearing as tolerated. She does need to obey hip precautions for the next 6 weeks. - On ASA 81 MG PO BID until 08/03 when she had significant stomach pain and refused the aspirin. Added PPI. - Switched to Lovenox 30 mg SQ daily x 6 weeks. (End date: 09/07/2020) - Stable from orthopedic standpoint. Ready for discharge. - Will add tramadol for pain control at q12h PRN. pain.. Can go to [facility] today as she participated in rehab. (2) Fall: Mechanical in nature. - PT/OT -> Rehab; (3) Passive suicidal ideations: Ongoing for this admission. She reported she doesn't understand why "God has forsaken [her]" and that she doesn't understand why she is "being allowed to ." - Appreciate psych recommendations - Will encourage patient daily on progress. may recommend followup with psych as outpatient. will defer to PCP. (4) Abnormal chest x-ray: CTA chest on admission showed a 4.1 x 3.7 cm lobular left perihilar low density lesion. This concerning for a pulmonary mass. There is also an enlarged and partially calcified left hilar lymph node measuring 1.7 cm which appears to demonstrate a small endobronchial component. Bronchoscopy recommended for further evaluation and to exclude a pulmonary mass. - Discussed with son on 07/31. - Brought it up to patient on 08/02, but she did not really comprehend/respond. Will continue to mention it to her. - Outpatient pulmonary referral. (5) Acute blood loss anemia: Hemoglobin dropped to 8 after surgery. - Will monitor - Stable on 08/03 (6) Protein calorie malnutrition: BMI is 16. - Consulted lanolin plant operator - Began vanilla Boost BID per patient preference. (7) DVT prophylaxis: Lovenox 30 mg SQ daily x 6 weeks after surgery Total Time Total Time Spent Total Time Spent (In Minutes): 32 Total Time Includes: Examination of the Patient, Discharge Planning and Medication Reconciliation Discharge Plan Discharge Items Patient Disposition: Transfer [facility] Reason For Visit: FALL Discharge Diagnosis: Fall, broken hip Activity: Per Instructions section Activity Comment: May weightbear as tolerated obeying hip precautions at all times. Weightbearing: Full weightbearing Weightbearing Comment: Obey hip precautions at all times. Non-emergency contact: Primary Care Provider and Surgeon Call non-emergency contact if: your symptoms worsen Follow-up/Referrals: Louis Camara MD [Primary Care Provider] - Srinath Starks MD [Physician] - (Orthopedic follow-up 2-3 weeks from surgery date.) Diet: Regular Addtl Attending Provider Instructions: ACTIVITY RECOMMENDATIONS: Physical Therapy: * Aggressive physical therapy is not usually needed. You will learn to take care of yourself safely and walk. * Follow the "Hip Precautions Instructions." * In some cases, the social media manager at the hospital will arrange to have a therapist come to your house for the first couple of weeks to help you learn these skills. * You need to practice on your own or with the help of a family member as needed. * When you learn these skills, most of the therapy can be done on your own. Home Exercise: * You were shown a series of exercises in the hospital. Do these exercises three to four times each day including the exercises you were shown in physical therapy. Walking: * Get up and walk several times each day. For the first four weeks, try not to stand or walk for more than one hour at a time. If you do stand or walk for more than one hour, you will not hurt anything, but your leg will likely swell. * As you feel comfortable, you may change from the walker or crutches to a cane and then to independent walking. MEDICATIONS: New Medicine: * You will likely be taking one or more of these medicines: 1. Lovenox 30 mg SQ daily * The most common side effects of pain medicine and iron are nausea and constipation. If nausea or constipation is too much of a problem or if you have any questions about your new medicines or doses, call [facility] at [phone]. We will try to help you manage these issues. "VERY IMPORTANT TO READ AND REVIEW" Pain: * The immediate post-operative period after hip replacement surgery is often quite painful. * You are given a prescription for pain medicine. You should take it, as directed, when you need it, especially before physical therapy and before going to bed. Pain that interferes with sleep is very common and can last several months. * You will likely need pain medicine for the first two to four weeks. It will not stop all of the pain. The pain will lessen and as you feel better, you may change to milder pain medicine such as Tylenol. * The most common side effects of pain medicine are nausea and constipation, so don't take more than you need. SPECIAL CARE INSTRUCTIONS: TEDs/Elastic Stockings: * The white elastic stockings help limit swelling and prevent blood clots from forming in your legs. The more you wear them, the more they work. * Wear them for six weeks. Prevention of Infection: * Take antibiotics one hour before any dental cleaning, dental work, urological procedure, gastrointestinal procedure or any invasive surgery in order to prevent your new joint from getting infected. * You may get the antibiotics from the doctor performing the procedure or you may call our office at before and we will call in a prescription to the pharmacy of your choice. Things to Watch For: * Drainage from the incision site that occurs more than one week after your surgery. * Severely increased leg pain or swelling. * Increased redness at the incision site. * Fever above 102 degrees Fahrenheit. * Unusual chest pain or shortness of breath. * Unusual pain or burning with urination. Call [facility] at with any of the above problems or if you have any questions about your medicines or recovery. FOLLOW UP VISIT: Make an appointment to see your doctor for approximately two weeks after surgery for a progress check and staple removal by calling the office at . Pending Studies at Discharge: No Stand-Alone Forms: [facility] Skilled Items Patient informed of condition?: No DNR: No Discharge Level of Care: Skilled Communicable Disease: No Discharge Prognosis: Stable Lines: None Urinary Catheter: Yes Medications and DC Order Prescriptions: New pantoprazole 40 mg Tablet,Delayed Release (Dr/Ec) 40 mg PO QAM Qty: 30 RF: 0 enoxaparin [Lovenox] 30 mg/0.3 mL Syringe 30 mg subcut QAM Qty: 30 RF: 0 acetaminophen 500 mg Tablet 1,000 mg PO Q8H PRNQty: 0 RF: 0 tramadol 50 mg Tablet 50 mg PO Q12 PRN (Reason: moderate to severe pain) Qty: 10 RF: 0 Continued cholecalciferol (vitamin D3) [Vitamin D3] 25 mcg (1,000 unit) Tablet 25 mcg PO DAILY RF: 0 Discharge Orders: Discharge Order (Routine); Ordered 08/05/20 Ordered By: Dereje Diop Admission Data Admit Date/Time: 07/27/20 23:52 Attending Provider: Dereje Diop Admit Provider: Dax Wilson Primary Care Provider: Louis Camara Other Providers: Cristina Rodrigez ; Srinath Starks ; [facility] ; [facility] ; Bradley Rico ; Negrita Donald Roscoe Other Interventions: Discharge Summary Assessment (RN) Last Done: 08/05/20 15:11 Coding Level of Care Code D/C Day Management >30 mins Diagnoses Closed fracture of left hip S72.002A Encounter type: initial encounter Fall W19.XXXA Passive suicidal ideations R45.851 Abnormal chest x-ray R93.89 Acute blood loss anemia D62 Protein calorie malnutrition E46 DVT prophylaxis Z29.9
[2020-08-05] MEDS: ACETAMINOPHEN 500 MG TAB PO PRN (17:12)
== END 2020-08-05 17:41 | DRG 522 ==
LOC: ED 20:49 → SUATTDRO 23:52 → 3N 23:52